=== PATIENT | male | born 1945 | race Caucasian/White ===

== ENCOUNTER 2017-05-08 19:30 | Emergency (ER) | payer MEDICARE, OTHER ==
[2017-05-08] MEDS ORDERED: Sodium Chloride 0.9% 1,000 ML IV ONE (20:24)
[2017-05-08] MEDS ORDERED: Meclizine 25 MG Tab PO ONE (20:25)
--- NOTE | 2017-05-08 20:37 | EDM.PDOC ---
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 Patient states he does not have a history of vertigo. The symptoms of room spinning or reproducible when he moves his head in lays down as stated. He has no chest pain or shortness of breath. He's been eating and drinking what he feels is an appropriate amount of fluid intake. Patient denies palpitations or any new focal weakness. No fevers chills sweats or shaking chills. He is otherwise asymptomatic] Review of systems: As per history of present illness and below otherwise all systems reviewed and negative. Past medical history: As per history of present illness and as reviewed below otherwise noncontributory. Surgical history: As per history of present illness and as reviewed below otherwise noncontributory. Social history: No reported history of drug or alcohol abuse. Family history: As per history of present illness and as reviewed below otherwise noncontributory. Physical exam: Elderly frail-appearing male in no acute distress alert communicative and cooperative and appropriate. Supple neck baseline right eye blindness HEENT: Atraumatic, normocephalic, pupils reactive, negative for conjunctival pallor or scleral icterus, mucous membranes moist, throat clear, neck supple, nontender, trachea midline. Lungs: Clear to auscultation, breath sounds equal bilaterally, chest nontender. Heart: S1S2, regular, negative for clicks, rubs, or JVD. Abdomen: Soft, nondistended, nontender. Negative for masses or hepatosplenomegaly. Negative for costovertebral tenderness. Pelvis: Stable nontender. Genitourinary: Deferred. Rectal: Deferred. Extremities: Atraumatic, negative for cords or calf pain. Neurovascular unremarkable. Neuro: Awake, alert, oriented. 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 Cranial nerves otherwise unremarkable. Cerebellum unremarkable. Patient has a left hand tremor at what appears to be 120 bpm consistent with Parkinson's Motor and sensory otherwise unremarkable throughout. Exam nonfocal. Diagnostics: [EKG with normal sinus rhythm at 69 normal axis no STEMI interpreted by me Chest x-ray chronic changes no acute disease interpreted by me CT of the head pending] Therapeutics: [Meclizine and IV fluids administered] Impression: [Vertigo Dizziness] Plan: [Signs and symptoms consistent with vertigo easily reproducible with movement. Full workup pending to rule out contributory etiology. Meclizine and IV fluids given to follow clinically reevaluate in setting of results and possible anticipate outpatient management and follow-up.] Definitive disposition and diagnosis as appropriate pending reevaluation and review of above. - Related Data Allergies Allergy/AdvReac Type Severity Reaction Status Date / Time morphine Allergy Itching Verified 05/08/17 19:47 pain killers Allergy Itching Uncoded 05/08/17 19:47 Home Meds: Home Meds Aspirin [Halfprin] 81 mg PO DAILY 05/08/17 [History] Divalproex Sodium [Divalproex Sodium ER] 500 mg PO BID 05/08/17 [History] Hydrochlorothiazide 25 mg PO DAILY 05/08/17 [History] Lisinopril [Prinivil] 20 mg PO DAILY 05/08/17 [History] NIFEdipine [Nifediac cc] 60 mg PO DAILY 05/08/17 [History] Pravastatin [Pravachol] 40 mg PO DAILY 05/08/17 [History] Past Medical History HEENT History: Reports: Impaired Vision Cardiovascular History: Reports: High Cholesterol, Hypertension Genitourinary History: Reports: Renal Calculus Neurological History: Reports: CVA, Seizure, TIA - Past Surgical History HEENT Surgical History: Reports: None Cardiovascular Surgical History: Reports: None GI Surgical History: Reports: Appendectomy Male Surgical History: Reports: None Neurological Surgical History: Reports: None Social & Family History - Family History Family Medical History: Noncontributory - Tobacco Use Smoking Status *Q: Never Smoker Second Hand Smoke Exposure: No - Caffeine Use Caffeine Use: Reports: Coffee Caffeine Use Comment: 2cups/day - Recreational Drug Use Recreational Drug Use: No ED ROS GENERAL - Review of Systems Review Of Systems: See Below (History of present illness) ED EXAM, NEURO - Physical Exam Exam: See Below (History of present illness) Course - Vital Signs Last Recorded V/S: Last Vital Signs Temp 36.8 C 05/08/17 19:41 Pulse 72 05/08/17 19:41 Resp 20 05/08/17 19:41 BP 148/67 H 05/08/17 19:41 Pulse Ox - Orders/Labs/Meds Orders: Active Orders 24 hr Category Date Time Status EKG Documentation Completion [RC] STAT Care 05/08/17 20:24 Active Peripheral IV Care [RC] . DIRECTED Care 05/08/17 20:24 Active Chest 1V Frontal [CR] Stat Exams 05/08/17 20:24 Taken Head wo Cont [CT] Stat Exams 05/08/17 20:24 Taken Peripheral IV Insertion Adult [OM.PC] Stat Oth 05/08/17 20:24 Ordered Labs: Laboratory Tests 05/08/17 05/08/17 05/08/17 Range/Units 20:44 20:44 20:44 WBC 6.83 (4.0-11.0) K/uL RBC 3.84 L (4.50-5.90) M/uL Hgb 12.7 L (13.0-17.0) g/dL Hct 38.2 (38.0-50.0) % MCV 99.5 H (80.0-98.0) fL MCH 33.1 H (27.0-32.0) pg MCHC 33.2 (31.0-37.0) g/dL RDW Std Deviation 48.6 (28.0-62.0) fl RDW Coeff of Sayra 14 (11.0-15.0) % Plt Count 183 (150-400) K/uL MPV 11.30 (7.40-12.00) fL Neut % (Auto) 51.2 (48.0-80.0) % Lymph % (Auto) 33.5 (16.0-40.0) % [place] % (Auto) 14.3 (0.0-15.0) % Eos % (Auto) 0.7 (0.0-7.0) % Baso % (Auto) 0.3 (0.0-1.5) % Neut # (Auto) 3.5 (1.4-5.7) K/uL Lymph # (Auto) 2.3 (0.6-2.4) K/uL [place] # (Auto) 1.0 H (0.0-0.8) K/uL Eos # (Auto) 0.1 (0.0-0.7) K/uL Baso # (Auto) 0.0 (0.0-0.1) K/uL Nucleated RBC % 0.0 /100WBC Nucleated RBCs # 0 K/uL Sodium 143 (136-146) mmol/L Potassium 4.2 (3.5-5.1) mmol/L Chloride 105 (98-110) mmol/L Carbon Dioxide 30 (21-31) mmol/L BUN 21 (6.0-23.0) mg/dL Creatinine 1.1 (0.6-1.5) mg/dL Est Cr Clr Drug Dosing 49.40 mL/min Estimated GFR (MDRD) > 60.0 ml/min Glucose 112 H (60-110) mg/dL Calcium 10.0 (8.8-10.8) mg/dL Troponin I < 0.10 (0.0-0.29) NG/ML TSH 3rd Generation 2.29 (0.47-5.0) uIU/mL Meds: Medications Discontinued Medications Generic Name Dose Route Start Last Admin Trade Name Freq PRN Reason Stop Dose Admin Sodium Chloride 1,000 mls @ 999 mls/hr 05/08/17 20:24 05/08/17 20:38 Normal Saline IV 05/08/17 21:24 999 mls/hr .Bolus ONE Administration Meclizine HCl 25 mg 05/08/17 20:25 05/08/17 20:38 Antivert PO 05/08/17 20:26 25 mg ONETIME ONE Administration Departure - Departure Time of Disposition: 23:43 Disposition: Home, Self-Care 01 Condition: Good Clinical Impression: Vertigo - Discharge Information Referrals: PCP,None [Primary Care Provider] - Forms: ED Department Discharge Additional Instructions: Your symptoms are consistent with vertigo. A very full workup today including a CAT scan of your head EKG chest x-ray and labs all showed nothing which would contribute to your dizziness. Take meclizine, one pill every 6 hours as needed for dizziness. Be very careful walking and with your activities of daily living to avoid falls. Use walker if necessary. Follow-up with your DrBev in one to 2 days and return immediately for new severe or worsening symptoms - My Orders Last 24 Hours: My Active Orders 05/08/17 20:24 EKG Documentation Completion [RC] STAT Peripheral IV Care [RC] . DIRECTED Chest 1V Frontal [CR] Stat Head wo Cont [CT] Stat Peripheral IV Insertion Adult [OM.PC] Stat - Assessment/Plan Last 24 Hours: My Active Orders 05/08/17 20:24 EKG Documentation Completion [RC] STAT Peripheral IV Care [RC] . DIRECTED Chest 1V Frontal [CR] Stat Head wo Cont [CT] Stat Peripheral IV Insertion Adult [OM.PC] Stat
[2017-05-08 21:11] LABS: CHLORIDE,CL 105 mmol/L (98-110); SODIUM,NA 143 mmol/L (136-146)
[2017-05-08 23:46] VITALS: BP 136/52
--- NOTE | 2017-05-09 15:36 | CT ---
EXAM DATE: 05/08/17 PATIENT'S AGE: 71 Patient: ARMANDO ALMANZAR Facility: [place], [place] Site . Site : 1945 Study: CT Head [id number]/2/[id number] 9:34:34 PM Ordering Physician: Yogi Wu Final Report: HISTORY: Previous history of strokes. Question new onset. TECHNIQUE: The head was scanned in the axial plane at 3 mm intervals without IV contrast. Reconstructed bone windows obtained as well/reconstructions. FINDINGS: The visualized paranasal sinuses and mastoid air cells are well aerated. The calvarium is intact. There is calcification seen within the right vertebral artery and the carotid siphons. A 9.3 x 3.2 cm CSF fluid collection is seen posterior fossa. This may represent a latha cisterna magna or arachnoid cyst. The ventricles and sulci are enlarged. Patchy periventricular and subcortical white matter hypodensity is present. A 4 mm hypodensity seen in the right cerebellar hemisphere compatible old ischemia. A 5 mm lacunar infarct is in the left basal ganglia. There is encephalomalacia seen within the left occipital lobe and a smaller focus in the right occipital lobe compatible with old ischemia. No intra-axial mass, edema or midline shift identified. No extra- axial bleed identified. The lanier-white differentiation preserved. IMPRESSION: 1. Encephalomalacia compatible old ischemia within the occipital lobes, left greater than right. 2. 4 mm area of old ischemia within the right cerebellar hemisphere. 5 mm lacunar infarct in the left basal ganglia. 3. Atrophy. 4. Periventricular and subcortical white matter hypodensity most consistent with small vessel ischemic change. 5. No acute intracranial pathology or bleed. Dictated by Veena Edwards MD @ 05/08/2017 10:19:07 PM Dictated by: Veena Edwards MD @ 05/08/2017 22:19:21 (Electronic Signature) Report Signed by Proxy. JEREMY
--- NOTE | 2017-05-09 15:37 | CR ---
EXAM DATE: 05/08/17 PATIENT'S AGE: 71 Patient: ARMANDO ALMANZAR Facility: [place], [place] Site . Site : 1945 Study: XRay Chest [id number]/2/2017 9:35:13 PM Ordering Physician: Yogi Wu Final Report: HISTORY: Cardio evaluation. FINDINGS: AP portable chest radiograph demonstrates cardiac silhouette at the upper limits of normal. Pulmonary vasculature is free of cephalization. No consolidation or pleural effusion is seen. An 8 mm pulmonary nodule in left upper lobe with a central nidus of calcification compatible with a granuloma. IMPRESSION: No acute cardiopulmonary disease. Dictated by Veena Edwards MD @ 05/08/2017 10:20:57 PM Dictated by: Veena Edwards MD @ 05/08/2017 22:21:05 (Electronic Signature) Report Signed by Proxy. JEREMY
== END 2017-05-08 23:55 | disposition home or self-care (01) ==
LOC: MW.ED 19:30
DX: R42 Dizziness and giddiness (principal); I10 Essential (primary) hypertension; E78.00 Pure hypercholesterolemia, unspecified; Z88.5 Allergy status to narcotic agent; Z79.82 Long term (current) use of aspirin; Z79.899 Other long term (current) drug therapy; Z87.442 Personal history of urinary calculi; Z86.73 Personal history of transient ischemic attack (TIA), and cerebral infarction without residual deficits; Z90.49 Acquired absence of other specified parts of digestive tract
CPT/HCPCS: 36415; 70450; 71010; 80048; 84443; 84484; 85025; 96360; 99285; A9270; J7040; 93005; 99283

== ENCOUNTER 2019-05-16 15:07 | Observation (INO) | payer MEDICARE, OTHER ==
[2019-05-16] MEDS ORDERED: Sodium Chloride 0.9% 10 ML Syringe FLUSH PRN (15:09)
[2019-05-16] MEDS ORDERED: Sodium Chloride 0.9% 10 ML SDV IV PRN (15:09)
[2019-05-16] MEDS ORDERED: Sodium Chloride 0.9% 2.5 ML Syringe FLUSH PRN (15:09)
--- NOTE | 2019-05-16 15:09 | EDM.PDOC ---
ED HPI GENERAL MEDICAL PROBLEM - General Stated Complaint: STROKE CODE Time Seen by Provider: 05/16/19 15:08 Source of Information: Reports: Patient History Limitations: Reports: No Limitations - History of Present Illness INITIAL COMMENTS - FREE TEXT/NARRATIVE: History of present illness: []Patient was brought in by his [id number] with seeing lines in his vision 10 minutes prior to arrival. He has also had a 2 day history of not taking his seizure and blood pressure meds, hallucinating and seeing people in their house and being more confused than normal. He has had 10 strokes in the past, the last one being 4 years ago, all of them have had visual symptoms with seeing "floaters and dots" and has not had any motor or sensory deficits with any of them. He was seen by the [facility] in [place] for his last stroke. He moved to [place] 2 years ago and has been seen in the [facility] for med refills only. He does not have a primary care or neurologist locally. Review of systems: As per history of present illness and below otherwise all systems reviewed and negative. Past medical history: As per history of present illness and as reviewed below otherwise noncontributory. Surgical history: As per history of present illness and as reviewed below otherwise noncontributory. Social history: No reported history of drug or alcohol abuse. Family history: As per history of present illness and as reviewed below otherwise noncontributory. Physical exam: General: Well developed, well nourished in NAD HEENT: Atraumatic, normocephalic, pupils reactive, negative for conjunctival pallor or scleral icterus, mucous membranes moist, throat clear, neck supple, nontender, trachea midline. Lungs: Clear to auscultation, breath sounds equal bilaterally, chest nontender. Heart: S1S2, regular, negative for clicks, rubs, or JVD. Abdomen: NABS, Soft, nondistended, nontender. Negative for masses or hepatosplenomegaly. Negative for costovertebral tenderness. Pelvis: Stable nontender. Genitourinary: Deferred. Rectal: Deferred. Extremities: Atraumatic, negative for cords or calf pain. Neurovascular unremarkable. Neuro: Awake, alert, oriented. Cranial nerves II through XII unremarkable. Cerebellum unremarkable. Motor and sensory unremarkable throughout. Exam nonfocal. Skin:warm and dry Diagnostics: CT head, CBC, chemistry, troponin, chest x-ray, TSH, UA and EKG Therapeutics: None ED Course: Consulted Dr. Chapman who knows this patient and has seen him in the office. She recommended admitting him for altered mental status and further workup, including MRI of brain Impression: Altered mental status Prescriptions: None Plan: Admit to hospitalist Dr. Mack accepts Definitive disposition and diagnosis as appropriate pending reevaluation and review of above. - Related Data Allergies Allergy/AdvReac Type Severity Reaction Status Date / Time morphine Allergy Itching Verified 05/16/19 15:26 pain killers Allergy Itching Uncoded 05/08/17 19:47 Home Meds: Home Meds Aspirin [Halfprin] 81 mg PO DAILY 05/08/17 [History] Cyanocobalamin (Vitamin B12) [Vitamin B12] 05/16/19 [History] Lacosamide [Vimpat] 25 mg PO ASDIRECTED 05/16/19 [History] Magnesium 05/16/19 [History] Multivitamin [Multivitamins] 05/16/19 [History] Past Medical History HEENT History: Reports: Impaired Vision Cardiovascular History: Reports: High Cholesterol, Hypertension Genitourinary History: Reports: Renal Calculus Neurological History: Reports: CVA, Seizure, TIA - Past Surgical History HEENT Surgical History: Reports: None Cardiovascular Surgical History: Reports: None GI Surgical History: Reports: Appendectomy Male Surgical History: Reports: None Neurological Surgical History: Reports: None Social & Family History - Family History Family Medical History: Noncontributory - Caffeine Use Caffeine Use: Reports: Coffee Caffeine Use Comment: 2cups/day ED ROS GENERAL - Review of Systems Review Of Systems: See Below ED EXAM, NEURO - Physical Exam Exam: See Below Course - Vital Signs Last Recorded V/S: Last Vital Signs Temp 95.5 F 05/16/19 17:30 Pulse 87 05/16/19 17:30 Resp 18 05/16/19 17:30 BP 154/80 H 05/16/19 17:30 Pulse Ox 97 05/16/19 17:30 - Orders/Labs/Meds Orders: Active Orders 24 hr Category Date Time Status Assess Neurological Status [RC] ASDIRECTED Care 05/16/19 15:09 Active Bedrest [RC] ASDIRECTED Care 05/16/19 15:09 Active Cardiac Monitoring [RC] . DIRECTED Care 05/16/19 15:09 Active EKG Documentation Completion [RC] STAT Care 05/16/19 15:09 Active Height and Weight [RC] UPON Care 05/16/19 15:09 Active Initiate Acute Stroke Protocol [RC] STAT Care 05/16/19 15:09 Active NIH Stroke Scale [RC] ASDIRECTED Care 05/16/19 15:09 Active Nursing Bedside Swallow Screen [RC] ASDIRECTED Care 05/16/19 15:09 Active Oxygen Therapy [RC] ASDIRECTED Care 05/16/19 15:09 Active Stroke Education, General [] Click to Edit Care 05/16/19 15:09 Active Sodium Chloride 0.9% [Normal Saline] Med 05/16/19 15:09 Active 10 ml IV ASDIRECTED PRN Sodium Chloride 0.9% [Normal Saline] 500 ml Med 05/16/19 15:45 Active IV .BOLUS Sodium Chloride 0.9% [Saline Flush] Med 05/16/19 15:09 Active 10 ml FLUSH ASDIRECTED PRN Sodium Chloride 0.9% [Saline Flush] Med 05/16/19 15:09 Active 2.5 ml FLUSH ASDIRECTED PRN Peripheral IV Insertion Adult [OM.PC] Stat Oth 05/16/19 15:09 Ordered Peripheral IV Insertion Adult [OM.PC] Stat Oth 05/16/19 15:09 Ordered Medication Orders Sodium Chloride (Normal Saline) 500 mls @ 999 mls/hr IV .BOLUS RAJAN Last Infusion: 05/16/19 15:47 Dose: 250 mls/hr Admin: 05/16/19 15:42 Dose: 999 mls/hr Sodium Chloride (Saline Flush) 10 ml FLUSH ASDIRECTED PRN PRN Reason: Keep Vein Open Sodium Chloride (Saline Flush) 2.5 ml FLUSH ASDIRECTED PRN PRN Reason: Keep Vein Open Sodium Chloride (Normal Saline) 10 ml IV ASDIRECTED PRN PRN Reason: IV Use Labs: Laboratory Tests 05/16/19 05/16/19 05/16/19 Range/Units 15:25 15:25 15:25 WBC 7.21 (4.0-11.0) K/uL RBC 4.36 L (4.50-5.90) M/uL Hgb 13.6 (13.0-17.0) g/dL Hct 40.9 (38.0-50.0) % MCV 93.8 (80.0-98.0) fL MCH 31.2 (27.0-32.0) pg MCHC 33.3 (31.0-37.0) g/dL RDW Std Deviation 47.4 (28.0-62.0) fl RDW Coeff of Sayra 14 (11.0-15.0) % Plt Count 151 (150-400) K/uL MPV 11.50 (7.40-12.00) fL Neut % (Auto) 37.4 L (48.0-80.0) % Lymph % (Auto) 46.0 H (16.0-40.0) % [place] % (Auto) 12.8 (0.0-15.0) % Eos % (Auto) 3.7 (0.0-7.0) % Baso % (Auto) 0.1 (0.0-1.5) % Neut # (Auto) 2.7 (1.4-5.7) K/uL Lymph # (Auto) 3.3 H (0.6-2.4) K/uL [place] # (Auto) 0.9 H (0.0-0.8) K/uL Eos # (Auto) 0.3 (0.0-0.7) K/uL Baso # (Auto) 0.0 (0.0-0.1) K/uL Nucleated RBC % 0.0 /100WBC Nucleated RBCs # 0 K/uL INR 0.96 APTT 28.1 (18.6-31.3) SEC Sodium 140 (136-148) mmol/L Potassium 3.6 (3.5-5.1) mmol/L Chloride 105 (98-107) mmol/L Carbon Dioxide 28.6 (21.0-32.0) mmol/L BUN 18 (7.0-18.0) mg/dL Creatinine 1.1 (0.8-1.3) mg/dL Est Cr Clr Drug Dosing 44.81 mL/min Estimated GFR (MDRD) > 60.0 ml/min Glucose 96 (74-106) mg/dL Calcium 9.3 (8.5-10.1) mg/dL Total Bilirubin 0.3 (0.2-1.0) mg/dL AST 22 (15-37) IU/L ALT 22 (14-63) IU/L Alkaline Phosphatase 119 H (46-116) U/L Troponin I < 0.050 (0.000-0.056) ng/mL Total Protein 8.4 H (6.4-8.2) g/dL Albumin 3.2 L (3.4-5.0) g/dL Globulin 5.2 H (2.6-4.0) g/dL Albumin/Globulin Ratio 0.6 L (0.9-1.6) TSH 3rd Generation 2.85 (0.36-3.74) uIU/mL Meds: Medications Generic Name Dose Route Start Last Admin Trade Name Freq PRN Reason Stop Dose Admin Sodium Chloride 500 mls @ 999 mls/hr 05/16/19 15:45 05/16/19 15:47 Normal Saline IV 250 mls/hr .BOLUS RAJAN Infusion Sodium Chloride 10 ml 05/16/19 15:09 Saline Flush FLUSH ASDIRECTED PRN Keep Vein Open Sodium Chloride 2.5 ml 05/16/19 15:09 Saline Flush FLUSH ASDIRECTED PRN Keep Vein Open Sodium Chloride 10 ml 05/16/19 15:09 Normal Saline IV ASDIRECTED PRN IV Use Departure - Departure Time of Disposition: 17:25 Disposition: Home, Self-Care 01 Condition: Good Clinical Impression: Altered mental status Qualifiers: Altered mental status type: unspecified Qualified Code(s): R41.82 - Altered mental status, unspecified - Discharge Information *PRESCRIPTION DRUG MONITORING PROGRAM REVIEWED*: No *COPY OF PRESCRIPTION DRUG MONITORING REPORT IN PATIENT CINDY: No - My Orders Last 24 Hours: My Active Orders 05/16/19 15:09 Assess Neurological Status [RC] ASDIRECTED Bedrest [RC] ASDIRECTED Cardiac Monitoring [RC] . DIRECTED EKG Documentation Completion [RC] STAT Height and Weight [RC] UPON Initiate Acute Stroke Protocol [RC] STAT NIH Stroke Scale [RC] ASDIRECTED Nursing Bedside Swallow Screen [RC] ASDIRECTED Oxygen Therapy [RC] ASDIRECTED Stroke Education, General [RC] Click to Edit Sodium Chloride 0.9% [Normal Saline] 10 ml IV ASDIRECTED PRN Sodium Chloride 0.9% [Saline Flush] 10 ml FLUSH ASDIRECTED PRN Sodium Chloride 0.9% [Saline Flush] 2.5 ml FLUSH ASDIRECTED PRN Peripheral IV Insertion Adult [OM.PC] Stat Peripheral IV Insertion Adult [OM.PC] Stat 05/16/19 15:45 Sodium Chloride 0.9% [Normal Saline] 500 ml IV .BOLUS - Assessment/Plan Last 24 Hours: My Active Orders 05/16/19 15:09 Assess Neurological Status [RC] ASDIRECTED Bedrest [RC] ASDIRECTED Cardiac Monitoring [RC] . DIRECTED EKG Documentation Completion [RC] STAT Height and Weight [RC] UPON Initiate Acute Stroke Protocol [RC] STAT NIH Stroke Scale [RC] ASDIRECTED Nursing Bedside Swallow Screen [RC] ASDIRECTED Oxygen Therapy [RC] ASDIRECTED Stroke Education, General [RC] Click to Edit Sodium Chloride 0.9% [Normal Saline] 10 ml IV ASDIRECTED PRN Sodium Chloride 0.9% [Saline Flush] 10 ml FLUSH ASDIRECTED PRN Sodium Chloride 0.9% [Saline Flush] 2.5 ml FLUSH ASDIRECTED PRN Peripheral IV Insertion Adult [OM.PC] Stat Peripheral IV Insertion Adult [OM.PC] Stat 05/16/19 15:45 Sodium Chloride 0.9% [Normal Saline] 500 ml IV .BOLUS
--- NOTE | 2019-05-16 15:36 | CT ---
Head CT Technique: Multiple axial sections through the brain were obtained. Intravenous contrast was not utilized. Comparison: Prior head CT exam of 03/22/18. Findings: Ventricles along with basal cisterns and sulci the convexities are moderately prominent. Old left occipital lobe infarct is seen. Old cerebellar infarcts are noted with atrophy. Ex vacuole enlargement is noted within the occipital horn of the left lateral ventricle. Mild areas of diminished density are noted within the periventricular white matter which is compatible with small vessel ischemic demyelination change. Old lacunar infarct is noted within the left basal ganglia. No other abnormal parenchymal densities are seen. No evidence of intracranial hemorrhage. No midline shift or mass effect is seen. Atherosclerotic calcification is seen within the vertebral vessel and within the carotid siphon. Bone window settings were reviewed which shows no acute calvarial abnormality. Visualized mastoid sinuses are clear. Paranasal sinuses that are seen also show nothing acute. Impression: 1. Senescent change as noted above which is stable from prior head CT study. 2. Nothing acute is appreciated on current noncontrast head CT exam. Diagnostic code #2 MTDD
[2019-05-16] MEDS ORDERED: Sodium Chloride 0.9% 500 ML IV SCH (15:45)
[2019-05-16 16:14] LABS: BLOOD UREA NITROGEN,BUN 18 mg/dL (7.0-18.0); CARBON DIOXIDE,CO2 28.6 mmol/L (21.0-32.0); CHLORIDE,CL 105 mmol/L (98-107); GLUCOSE RANDOM 96 mg/dL (74-106); POTASSIUM,K 3.6 mmol/L (3.5-5.1); SODIUM,NA 140 mmol/L (136-148)
[2019-05-16] MEDS ORDERED: Potassium Chloride 20 MEQ Tab.ER PO ONE (19:00)
[2019-05-16] MEDS ORDERED: Magnesium Oxide 400 MG Tab PO ONE (19:01)
--- NOTE | 2019-05-16 19:51 | PCM.HP.2 ---
H&P History of Present Illness - General Date of Service: 05/16/19 Admit Problem/Dx: Admission Diagnosis/Problem Admission Diagnosis/Problem Altered mental status Source of Information: Patient, Family History Limitations: Reports: Altered Mental Status (limited insight, active psychosis) - History of Present Illness Initial Comments - Free Text/Narative: Patient is a 73 y/o M PMH of vascular dementia, CVA, HTN, Seizure disorder who was brought in by his family after he complained of "seeing lines in his vision " which happed almost 10 minutes prior to arrival. According to patient has not been taking his home Meds and has missed several doses. Patient has active psychosis where he believes he is a holy man who will live upto 80years of age and cannot before that. Patient also has very vivid visual hallucinations describing spirits and people wearing bright red clothes, surrounding him in the room. states that he has been having hallucination for last 3 months now where he says people running across the room. Patients symptoms however have been getting worse last few days. Patient denied C/P, N/V/ D, fever, abdominal pain, urinary symptoms, head trauma. Wide describes mild cough whenever patient attempts to swallow. The tremor has been getting worse as well. Stroke alert was called in ER, CT scan was was performed which was neagtive fro acute stroke. Neurology suggested obtaining MRI and admitting for AMS work up. Last Recorded V/S: Last Vital Signs Temp 95.5 F 05/16/19 17:30 Pulse 87 05/16/19 17:30 Resp 18 05/16/19 17:30 BP 154/80 H 05/16/19 17:30 Pulse Ox 97 05/16/19 17:30 Medications in ER Generic Name Dose Route Start Last Admin Trade Name Freq PRN Reason Stop Dose Admin Sodium Chloride 500 mls @ 999 mls/hr 05/16/19 15:45 05/16/19 15:47 Normal Saline IV 250 mls/hr .BOLUS RAJAN Infusion Sodium Chloride 10 ml 05/16/19 15:09 Saline Flush FLUSH ASDIRECTED PRN Keep Vein Open Sodium Chloride 2.5 ml 05/16/19 15:09 Saline Flush FLUSH ASDIRECTED PRN Keep Vein Open Sodium Chloride 10 ml 05/16/19 15:09 Normal Saline IV ASDIRECTED PRN IV Use Onset of Symptoms: Reports: Gradual Duration of Symptoms: Reports: Chronic, Getting Worse Improves with: Reports: None Worsens with: Reports: None - Related Data Allergies/Adverse Reactions: Allergies Allergy/AdvReac Type Severity Reaction Status Date / Time morphine Allergy Itching Verified 05/17/19 00:02 pain killers Allergy Itching Uncoded 05/17/19 00:02 Home Medications: Home Meds Aspirin [Halfprin] 81 mg PO DAILY 05/08/17 [History] Timolol Maleate [Timoptic 0.5% Ophth Soln] 1 drop EYELF BID 05/16/19 [History] Lacosamide [Vimpat] 50 mg PO BID #60 tab 05/17/19 [Rx] Pravastatin [Pravachol] 40 mg PO BEDTIME #30 tablet 05/17/19 [Rx] Thiamine [Vitamin B-1] 100 mg PO BEDTIME 30 Days #30 tablet 05/17/19 [Rx] amLODIPine [Norvasc] 5 mg PO DAILY #30 tab 05/17/19 [Rx] Past Medical History HEENT History: Reports: Impaired Vision Cardiovascular History: Reports: High Cholesterol, Hypertension Respiratory History: Reports: Other (See Below) Other Respiratory History: "I have bad lungs". Genitourinary History: Reports: Renal Calculus Other Genitourinary History: "I have bad kidneys". Musculoskeletal History: Reports: Other (See Below) Other Musculoskeletal History: Generalized weakness. Neurological History: Reports: CVA, Seizure, TIA Psychiatric History: Reports: Dementia Immunologic History: Reports: None Dermatologic History: Reports: Scleroderma - Infectious Disease History Infectious Disease History: Reports: Other (See Below) Other Infectious Disease History: Unable to verify - Past Surgical History HEENT Surgical History: Reports: None Cardiovascular Surgical History: Reports: None GI Surgical History: Reports: Appendectomy Male Surgical History: Reports: None Neurological Surgical History: Reports: None Social & Family History - Family History Family Medical History: Noncontributory - Tobacco Use Smoking Status *Q: Never Smoker Second Hand Smoke Exposure: No - Caffeine Use Caffeine Use: Reports: Coffee Caffeine Use Comment: 2cups/day - Recreational Drug Use Recreational Drug Use: No H&P Review of Systems - Review of Systems: Review Of Systems: See Below General: Reports: No Symptoms HEENT: Reports: No Symptoms, Rhinitis (upon swallowing ) Pulmonary: Reports: Cough Cardiovascular: Denies: Chest Pain, Palpitations Gastrointestinal: Reports: Decreased Appetite. Denies: Abdominal Pain, Black Stool, Constipation, Diarrhea Genitourinary: Denies: Dysuria, Frequency, Burning Musculoskeletal: Denies: Neck Pain, Shoulder Pain, Arm Pain Psychiatric: Reports: Hallucinations, Hallucinations (Visual). Denies: Suicidal Ideation, Homicidal Ideation Neurological: Reports: Seizure, Tremors, Difficulty Walking, Gait Disturbance Hematologic/Lymphatic: Reports: No Symptoms Immunologic: Reports: No Symptoms Exam - Exam Exam: See Below - Vital Signs Vital Signs: Last Vital Signs Temp 35.3 C 05/16/19 17:30 Pulse 87 05/16/19 17:30 Resp 18 05/16/19 17:30 BP 154/80 H 05/16/19 17:30 Pulse Ox 97 05/16/19 17:30 Weight: 120 lb 11.2 oz - Exam Quality Assessment: Supplemental Oxygen General: Alert, Cooperative HEENT: Conjunctiva Clear, Normal Nasal Septum, Pupils Equal, Rhinitis. No: Mucosa Moist & [place] Neck: Supple, Trachea Midline Lungs: Clear to Auscultation, Normal Respiratory Effort Cardiovascular: Regular Rate, Irregular Rhythm GI/Abdominal Exam: Normal Bowel Sounds, Soft, Non-Tender Back Exam: Normal Inspection Extremities: Normal Inspection, Normal Range of Motion Peripheral Pulses: 3+: Dorsalis Pedis (L), Dorsalis Pedis (R) Skin: Warm, Dry Neurological: Normal Speech, Abnormal Gait (chronic) Neuro Extensive - Mental Status: Alert, Oriented x3, Memory Intact Neuro Extensive - Motor, Sensory, Reflexes: Normal Reflexes Psychiatric: Hallucinations. No: Suicidal Ideation, Homicidal Ideation - Patient Data Lab Results Last 24 hrs: Laboratory Results - last 24 hr 05/16/19 05/16/19 05/16/19 Range/Units 15:25 15:25 15:25 WBC 7.21 (4.0-11.0) K/uL RBC 4.36 L (4.50-5.90) M/uL Hgb 13.6 (13.0-17.0) g/dL Hct 40.9 (38.0-50.0) % MCV 93.8 (80.0-98.0) fL MCH 31.2 (27.0-32.0) pg MCHC 33.3 (31.0-37.0) g/dL RDW Std Deviation 47.4 (28.0-62.0) fl RDW Coeff of Sayra 14 (11.0-15.0) % Plt Count 151 (150-400) K/uL MPV 11.50 (7.40-12.00) fL Neut % (Auto) 37.4 L (48.0-80.0) % Lymph % (Auto) 46.0 H (16.0-40.0) % [place] % (Auto) 12.8 (0.0-15.0) % Eos % (Auto) 3.7 (0.0-7.0) % Baso % (Auto) 0.1 (0.0-1.5) % Neut # (Auto) 2.7 (1.4-5.7) K/uL Lymph # (Auto) 3.3 H (0.6-2.4) K/uL [place] # (Auto) 0.9 H (0.0-0.8) K/uL Eos # (Auto) 0.3 (0.0-0.7) K/uL Baso # (Auto) 0.0 (0.0-0.1) K/uL Nucleated RBC % 0.0 /100WBC Nucleated RBCs # 0 K/uL INR 0.96 APTT 28.1 (18.6-31.3) SEC Sodium 140 (136-148) mmol/L Potassium 3.6 (3.5-5.1) mmol/L Chloride 105 (98-107) mmol/L Carbon Dioxide 28.6 (21.0-32.0) mmol/L BUN 18 (7.0-18.0) mg/dL Creatinine 1.1 (0.8-1.3) mg/dL Est Cr Clr Drug Dosing 44.81 mL/min Estimated GFR (MDRD) > 60.0 ml/min Glucose 96 (74-106) mg/dL Calcium 9.3 (8.5-10.1) mg/dL Total Bilirubin 0.3 (0.2-1.0) mg/dL AST 22 (15-37) IU/L ALT 22 (14-63) IU/L Alkaline Phosphatase 119 H (46-116) U/L Troponin I < 0.050 (0.000-0.056) ng/mL Total Protein 8.4 H (6.4-8.2) g/dL Albumin 3.2 L (3.4-5.0) g/dL Globulin 5.2 H (2.6-4.0) g/dL Albumin/Globulin Ratio 0.6 L (0.9-1.6) TSH 3rd Generation 2.85 (0.36-3.74) uIU/mL Urine Color Urine Appearance Urine pH (5.0-8.0) Ur Specific [place] (1.001-1.035) Urine Protein (NEGATIVE) mg/dL Urine Glucose (UA) (NEGATIVE) mg/dL Urine Ketones (NEGATIVE) mg/dL Urine Occult Blood (NEGATIVE) Urine Nitrite (NEGATIVE) Urine Bilirubin (NEGATIVE) Urine Urobilinogen (<2.0) EU/dL Ur Leukocyte Esterase (NEGATIVE) Urine RBC (0-2/HPF) Urine WBC (0-5/HPF) Ur Epithelial Cells (NONE-FEW) Urine Bacteria (NEGATIVE) Urine Mucus (NONE-MOD) 05/16/19 Range/Units 16:05 WBC (4.0-11.0) K/uL RBC (4.50-5.90) M/uL Hgb (13.0-17.0) g/dL Hct (38.0-50.0) % MCV (80.0-98.0) fL MCH (27.0-32.0) pg MCHC (31.0-37.0) g/dL RDW Std Deviation (28.0-62.0) fl RDW Coeff of [place]ra (11.0-15.0) % Plt Count (150-400) K/uL MPV (7.40-12.00) fL Neut % (Auto) (48.0-80.0) % Lymph % (Auto) (16.0-40.0) % [place] % (Auto) (0.0-15.0) % Eos % (Auto) (0.0-7.0) % Baso % (Auto) (0.0-1.5) % Neut # (Auto) (1.4-5.7) K/uL Lymph # (Auto) (0.6-2.4) K/uL [place] # (Auto) (0.0-0.8) K/uL Eos # (Auto) (0.0-0.7) K/uL Baso # (Auto) (0.0-0.1) K/uL Nucleated RBC % /100WBC Nucleated RBCs # K/uL INR APTT (18.6-31.3) SEC Sodium (136-148) mmol/L Potassium (3.5-5.1) mmol/L Chloride (98-107) mmol/L Carbon Dioxide (21.0-32.0) mmol/L BUN (7.0-18.0) mg/dL Creatinine (0.8-1.3) mg/dL Est Cr Clr Drug Dosing mL/min Estimated GFR (MDRD) ml/min Glucose (74-106) mg/dL Calcium (8.5-10.1) mg/dL Total Bilirubin (0.2-1.0) mg/dL AST (15-37) IU/L ALT (14-63) IU/L Alkaline Phosphatase (46-116) U/L Troponin I (0.000-0.056) ng/mL Total Protein (6.4-8.2) g/dL Albumin (3.4-5.0) g/dL Globulin (2.6-4.0) g/dL Albumin/Globulin Ratio (0.9-1.6) TSH 3rd Generation (0.36-3.74) uIU/mL Urine Color YELLOW Urine Appearance CLEAR Urine pH 6.5 (5.0-8.0) Ur Specific [place] 1.020 (1.001-1.035) Urine Protein 30 H (NEGATIVE) mg/dL Urine Glucose (UA) NEGATIVE (NEGATIVE) mg/dL Urine Ketones NEGATIVE (NEGATIVE) mg/dL Urine Occult Blood NEGATIVE (NEGATIVE) Urine Nitrite NEGATIVE (NEGATIVE) Urine Bilirubin NEGATIVE (NEGATIVE) Urine Urobilinogen 0.2 (<2.0) EU/dL Ur Leukocyte Esterase NEGATIVE (NEGATIVE) Urine RBC 0-1 (0-2/HPF) Urine WBC 0-2 (0-5/HPF) Ur Epithelial Cells FEW (NONE-FEW) Urine Bacteria RARE (NEGATIVE) Urine Mucus LIGHT (NONE-MOD) Result Diagrams: 05/17/19 05:45 05/17/19 05:45 *Q Meaningful Use (ADM) - VTE Risk Assess *Q Each Risk Factor Represents 3 Points: Age 75 Years or Greater Total Score 3 Point Risk Factors: 3 - Problem List (1) Altered mental status SNOMED Code(s): 958634264 ICD Code: R41.82 - ALTERED MENTAL STATUS, UNSPECIFIED Status: Acute Qualifiers: Altered mental status type: unspecified Qualified Code(s): R41.82 - Altered mental status, unspecified (2) HTN (hypertension) SNOMED Code(s): 79250591 ICD Code: I10 - ESSENTIAL (PRIMARY) HYPERTENSION Status: Acute (3) CVA, old, cognitive deficits SNOMED Code(s): 466655622, 256064081, 203903439, 090445689 ICD Code: I69.319 - UNSP SYMPTOMS AND SIGNS W COGN FNCTNS FOL CEREBRAL INFRC Status: Acute (4) Seizure SNOMED Code(s): 81144423 ICD Code: R56.9 - UNSPECIFIED CONVULSIONS Status: Acute Problem List Initiated/Reviewed/Updated: Yes Orders Last 24hrs: Active Orders 24 hr Category Date Time Status Patient Status [ADT] Stat ADT 05/16/19 16:01 Active Assess Neurological Status [RC] Q2HWA Care 05/16/19 18:43 Active Bedrest [RC] ASDIRECTED Care 05/16/19 15:09 Active Cardiac Monitoring [RC] . DIRECTED Care 05/16/19 15:09 Active Initiate Acute Stroke Protocol [RC] STAT Care 05/16/19 15:09 Active NIH Stroke Scale [RC] ASDIRECTED Care 05/16/19 15:09 Active Nursing Bedside Swallow Screen [RC] ASDIRECTED Care 05/16/19 15:09 Active Oxygen Therapy [RC] ASDIRECTED Care 05/16/19 15:09 Active Stroke Education, General [RC] Click to Edit Care 05/16/19 15:09 Active Up With Assistance [RC] ASDIRECTED Care 05/16/19 16:30 Active Vital Signs [RC] Q4H Care 05/16/19 16:33 Active Heart Healthy Diet [DIET] Diet 05/16/19 Dinner Active Brain w wo Cont [MR] Routine Exams 05/16/19 18:09 Ordered DRUG SCREEN, URINE [URCHEM] Urgent Lab 05/16/19 18:45 Ordered GLYCOSYLATED HEMOGLOBIN,HGBA1C [CHEM] AM Lab 05/17/19 05:11 Ordered LIPID PANEL [CHEM] AM Lab 05/17/19 05:11 Ordered VITAMIN B12 [CHEM] Routine Lab 05/16/19 18:53 Ordered Aspirin Med 05/16/19 21:00 Active 81 mg PO BEDTIME Lacosamide [Vimpat] Med 05/16/19 21:00 Pending 200 mg PO BID Sodium Chloride 0.9% [Normal Saline] Med 05/16/19 15:09 Active 10 ml IV ASDIRECTED PRN Sodium Chloride 0.9% [Normal Saline] 500 ml Med 05/16/19 15:45 Active IV .BOLUS Sodium Chloride 0.9% [Saline Flush] Med 05/16/19 15:09 Active 10 ml FLUSH ASDIRECTED PRN Sodium Chloride 0.9% [Saline Flush] Med 05/16/19 15:09 Active 2.5 ml FLUSH ASDIRECTED PRN Thiamine [Vitamin B-1] Med 05/16/19 21:00 Active 100 mg PO BEDTIME atorvaSTATin [Lipitor] Med 05/16/19 21:00 Active 40 mg PO BEDTIME Peripheral IV Insertion Adult [OM.PC] Stat Oth 05/16/19 15:09 Ordered Peripheral IV Insertion Adult [OM.PC] Stat Oth 05/16/19 15:09 Ordered Medication Orders Aspirin (Aspirin) 81 mg PO BEDTIME RAJAN Atorvastatin Calcium (Lipitor) 40 mg PO BEDTIME RAJAN Sodium Chloride (Normal Saline) 500 mls @ 999 mls/hr IV .BOLUS RAJAN Last Infusion: 05/16/19 15:47 Dose: 250 mls/hr Admin: 05/16/19 15:42 Dose: 999 mls/hr Non-Formulary Medication (Lacosamide [Vimpat]) 200 mg PO BID RAJAN Sodium Chloride (Saline Flush) 10 ml FLUSH ASDIRECTED PRN PRN Reason: Keep Vein Open Sodium Chloride (Saline Flush) 2.5 ml FLUSH ASDIRECTED PRN PRN Reason: Keep Vein Open Sodium Chloride (Normal Saline) 10 ml IV ASDIRECTED PRN PRN Reason: IV Use Thiamine HCl (Vitamin B-1) 100 mg PO BEDTIME RAJAN Assessment/Plan Comment:: Patient came in with visual disturbances and active visual hallucinations including spirits and spiders CT scan head was negative Metabolic profile is normal UA negative for UTI, TSH normal Will obtain CXR given patient has some cough and rhinorrhea f/u on tox screen, vit b12 level, RPR No h/o alcohol abuse so dont suspect withdrawal will obtain MRI brain No signs of systemic infection, metabolic/infectious cause unlikely May need further neuropsych eval if no medical cause found for hallucinations Will cont neuro checks Allow permissive HTN Resume home Meds including vimpat for seizures (although patient adamantly refusing meds) ASA, statin Lipid profile
[2019-05-16] MEDS: LACOSAMIDE 200 MG PO SCH ×2 (20:34→22:21)
[2019-05-16] MEDS ORDERED: atorvaSTATin 40 MG Tab PO SCH (21:00)
[2019-05-16] MEDS ORDERED: Aspirin 81 MG Tab.Chew PO SCH (21:00)
[2019-05-16] MEDS ORDERED: Thiamine 100 MG Tab PO SCH (21:00)
--- NOTE | 2019-05-16 21:41 | CR ---
INDICATION: Cough. TECHNIQUE: Portable AP upright chest 2110 hour. COMPARISON: 05/08/2017. FINDINGS: Monitoring leads have been placed over the chest wall. Calcified granuloma in the left upper lobe. No pulmonary infiltrates, pleural effusions or pulmonary vascular congestion. The hilar and mediastinal contours are stable. Degenerative changes of the visualized spine. Impression: No acute radiographic chest finding with old granulomatous disease. Dictated by Diony Flores MD @ May 16 2019 9:39PM Signed by Dr. Diony Flores @ May 16 2019 9:40PM
[2019-05-16] MEDS ORDERED: VIMPAT 200 MG PO STA (22:17)
[2019-05-17 06:22] LABS: HEMOGLOBIN A1C 5.6 % (4.5-6.2)
[2019-05-17 06:24] LABS: BLOOD UREA NITROGEN,BUN 14 mg/dL (7.0-18.0); CARBON DIOXIDE,CO2 26.5 mmol/L (21.0-32.0); CHLORIDE,CL 106 mmol/L (98-107); GLUCOSE RANDOM 89 mg/dL (74-106); POTASSIUM,K 4.4 mmol/L (3.5-5.1); SODIUM,NA 141 mmol/L (136-148)
[2019-05-17] MEDS ORDERED: LACOSAMIDE 200 MG PO SCH ×2 (09:00→21:00)
--- NOTE | 2019-05-17 11:14 | PCM.CONS ---
H&P History of Present Illness - General Date of Service: 05/17/19 Admit Problem/Dx: Admission Diagnosis/Problem Admission Diagnosis/Problem Altered mental status - History of Present Illness Initial Comments - Free Text/Narative: 73 year old man with a history of multiple strokes, seizure disorder admitted with visual symptoms and worsening hallucinations. He was brought to ED yesterday because he was seeing lines in his vision, and they were worried about stroke. He also sees spiders and people. He looks at wall and sees designs and artwork. He recognizes that these are not real. He endorses hallucinations of seeing people for 5-6 months. His son was present and was not aware of this. He can be argumentative at times, but otherwise does not appear anxious / agitated related to the hallucination. He does endorse memory issues. He lives with his and son. Prior neuro hx reviewed He has had multiple strokes and multiple TIAs. The first stroke was in 2008 or 2009. The second was a few weeks after the first. 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 He had PFO / ASD, and he had PFO closure in 2009. He was on warfarin in the past, it was stopped after a couple years because he refused to keep taking it. He was diagnosed with a stroke around Jul 2017 by an dairy husbandry worker, which has affected the vision in his left eye. He had skull fracture and head injury in 1968. He started having small episodes after this injury. He had first grand mal seizure was in 1989. He has had 3-4 "grand mal" seizures. The last was 1995. He has "petit mal" seizures as well. He notes that he will drop his glasses. His notes that he won't respond for about a minute or less. He makes smacking movement and picks at his clothes. He will be very tired following the episode. He was started Depakote when seizures started. He had tremor after he started Depakote in 1989. Dilantin caused rapid heart rate. Lamictal was not tolerated. Keppra tried in 2013 was not tolerated.Depakote stopped (due to tremor) and Vimpat started 03/20 and was tolerated well. He was doing well on 100 mg BID, but was having seizures in August, so I had him decrease dose to 200 mg BID. He was very fatigued and weak on this dose. He subsequently decreased dose to 100 mg every other day. He reports no seizures. - Related Data Allergies/Adverse Reactions: Allergies Allergy/AdvReac Type Severity Reaction Status Date / Time morphine Allergy Itching Verified 05/17/19 00:02 pain killers Allergy Itching Uncoded 05/17/19 00:02 Home Medications: Home Meds Aspirin [Halfprin] 81 mg PO DAILY 05/08/17 [History] Lacosamide [Vimpat] 200 mg PO BID 05/16/19 [History] Timolol Maleate [Timoptic 0.5% Ophth Soln] 1 drop EYELF BID 05/16/19 [History] Past Medical History HEENT History: Reports: Impaired Vision Cardiovascular History: Reports: High Cholesterol, Hypertension Respiratory History: Reports: Other (See Below) Other Respiratory History: "I have bad lungs". Genitourinary History: Reports: Renal Calculus Other Genitourinary History: "I have bad kidneys". Musculoskeletal History: Reports: Other (See Below) Other Musculoskeletal History: Generalized weakness. Neurological History: Reports: CVA, Seizure, TIA Psychiatric History: Reports: Dementia Immunologic History: Reports: None Dermatologic History: Reports: Scleroderma - Infectious Disease History Infectious Disease History: Reports: Other (See Below) Other Infectious Disease History: Unable to verify - Past Surgical History HEENT Surgical History: Reports: None Cardiovascular Surgical History: Reports: None GI Surgical History: Reports: Appendectomy Male Surgical History: Reports: None Neurological Surgical History: Reports: None Social & Family History - Family History Family Medical History: Noncontributory - Tobacco Use Smoking Status *Q: Never Smoker Second Hand Smoke Exposure: No - Caffeine Use Caffeine Use: Reports: Coffee Caffeine Use Comment: 2cups/day - Recreational Drug Use Recreational Drug Use: No H&P Review of Systems - Review of Systems: Review Of Systems: ROS reveals no pertinent complaints other than HPI. Exam - Exam Exam: See Below - Vital Signs Vital Signs: Last Vital Signs Temp 36.9 C 05/17/19 07:45 Pulse 61 05/17/19 07:45 Resp 16 05/17/19 07:45 BP 159/76 H 05/17/19 07:45 Pulse Ox 100 05/17/19 07:45 Weight: 54.749 kg - Exam Physical Exam Comments:: Constitutional: No acute distress Psychiatric: Mood/Affect: normal/appropriate Neurological: Mental Status: tangential, often off topic General: Normal activity, good hygiene, appropriate appearance. Level of consciousness: Awake, alert. Concentration/Attention Span: Normal. Orientation: oriented to person and place. Incorrect month, year (2000). He did volunteer [employer] when talking about [facility]. Comprehension/Praxis: Able to perform a three step command. Language: Fluent and articulate without evidence of aphasia or dysarthria. 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 Right eye deviated laterally. EOMI with left eye. Sensation intact and symmetric to light touch. Facial strength is full and symmetric. Palate elevates symmetrically. Normal shrug bilaterally. Tongue protrudes midline Motor:. Power is 5/5 throughout proximal and distal muscles. Sensation: Sensation is intact light touch Coordination: Resting tremor noted on the left. Finger to nose notable for kinetic tremor, worse on the left. Finger taps mildly impaired Gait: wide based gait, lordosis - Patient Data Lab Results Last 24 hrs: Laboratory Results - last 24 hr 05/16/19 05/16/19 05/16/19 Range/Units 15:25 15:25 15:25 WBC 7.21 (4.0-11.0) K/uL RBC 4.36 L (4.50-5.90) M/uL Hgb 13.6 (13.0-17.0) g/dL Hct 40.9 (38.0-50.0) % MCV 93.8 (80.0-98.0) fL MCH 31.2 (27.0-32.0) pg MCHC 33.3 (31.0-37.0) g/dL RDW Std Deviation 47.4 (28.0-62.0) fl RDW Coeff of Sayra 14 (11.0-15.0) % Plt Count 151 (150-400) K/uL MPV 11.50 (7.40-12.00) fL Neut % (Auto) 37.4 L (48.0-80.0) % Lymph % (Auto) 46.0 H (16.0-40.0) % Collier % (Auto) 12.8 (0.0-15.0) % Eos % (Auto) 3.7 (0.0-7.0) % Baso % (Auto) 0.1 (0.0-1.5) % Neut # (Auto) 2.7 (1.4-5.7) K/uL Lymph # (Auto) 3.3 H (0.6-2.4) K/uL Collier # (Auto) 0.9 H (0.0-0.8) K/uL Eos # (Auto) 0.3 (0.0-0.7) K/uL Baso # (Auto) 0.0 (0.0-0.1) K/uL Nucleated RBC % 0.0 /100WBC Nucleated RBCs # 0 K/uL INR 0.96 APTT 28.1 (18.6-31.3) SEC Sodium 140 (136-148) mmol/L Potassium 3.6 (3.5-5.1) mmol/L Chloride 105 (98-107) mmol/L Carbon Dioxide 28.6 (21.0-32.0) mmol/L BUN 18 (7.0-18.0) mg/dL Creatinine 1.1 (0.8-1.3) mg/dL Est Cr Clr Drug Dosing 44.81 mL/min Estimated GFR (MDRD) > 60.0 ml/min Glucose 96 (74-106) mg/dL Hemoglobin A1c (4.5-6.2) % Calcium 9.3 (8.5-10.1) mg/dL Phosphorus (2.6-4.7) mg/dL Magnesium (1.8-2.4) mg/dL Total Bilirubin 0.3 (0.2-1.0) mg/dL AST 22 (15-37) IU/L ALT 22 (14-63) IU/L Alkaline Phosphatase 119 H (46-116) U/L Ammonia (19-54) ug/dL Troponin I < 0.050 (0.000-0.056) ng/mL Total Protein 8.4 H (6.4-8.2) g/dL Albumin 3.2 L (3.4-5.0) g/dL Globulin 5.2 H (2.6-4.0) g/dL Albumin/Globulin Ratio 0.6 L (0.9-1.6) Triglycerides (0-200) mg/dL Cholesterol (50-200) mg/dL LDL Cholesterol, Calc (60-180) mg/dL VLDL Cholesterol (5-55) mg/dL HDL Cholesterol (40-60) mg/dL Cholesterol/HDL Ratio (3.3-6.0) Vitamin B12 (193-986) pg/mL TSH 3rd Generation 2.85 (0.36-3.74) uIU/mL Urine Color Urine Appearance Urine pH (5.0-8.0) Ur Specific Cheney (1.001-1.035) Urine Protein (NEGATIVE) mg/dL Urine Glucose (UA) (NEGATIVE) mg/dL Urine Ketones (NEGATIVE) mg/dL Urine Occult Blood (NEGATIVE) Urine Nitrite (NEGATIVE) Urine Bilirubin (NEGATIVE) Urine Urobilinogen (<2.0) EU/dL Ur Leukocyte Esterase (NEGATIVE) Urine RBC (0-2/HPF) Urine WBC (0-5/HPF) Ur Epithelial Cells (NONE-FEW) Urine Bacteria (NEGATIVE) Urine Mucus (NONE-MOD) Urine Opiates Screen (NEGATIVE) Ur Oxycodone Screen (NEGATIVE) Urine Methadone Screen (NEGATIVE) Ur Barbiturates Screen (NEGATIVE) Ur Phencyclidine Scrn (NEGATIVE) Ur Amphetamine Screen (NEGATIVE) U Methamphetamines Scrn (NEGATIVE) U Benzodiazepines Scrn (NEGATIVE) U Cocaine Metab Screen (NEGATIVE) U Marijuana (THC) Screen (NEGATIVE) 05/16/19 05/16/19 05/16/19 Range/Units 15:25 16:05 16:05 WBC (4.0-11.0) K/uL RBC (4.50-5.90) M/uL Hgb (13.0-17.0) g/dL Hct (38.0-50.0) % MCV (80.0-98.0) fL MCH (27.0-32.0) pg MCHC (31.0-37.0) g/dL RDW Std Deviation (28.0-62.0) fl RDW Coeff of Sayra (11.0-15.0) % Plt Count (150-400) K/uL MPV (7.40-12.00) fL Neut % (Auto) (48.0-80.0) % Lymph % (Auto) (16.0-40.0) % Collier % (Auto) (0.0-15.0) % Eos % (Auto) (0.0-7.0) % Baso % (Auto) (0.0-1.5) % Neut # (Auto) (1.4-5.7) K/uL Lymph # (Auto) (0.6-2.4) K/uL Collier # (Auto) (0.0-0.8) K/uL Eos # (Auto) (0.0-0.7) K/uL Baso # (Auto) (0.0-0.1) K/uL Nucleated RBC % /100WBC Nucleated RBCs # K/uL INR APTT (18.6-31.3) SEC Sodium (136-148) mmol/L Potassium (3.5-5.1) mmol/L Chloride (98-107) mmol/L Carbon Dioxide (21.0-32.0) mmol/L BUN (7.0-18.0) mg/dL Creatinine (0.8-1.3) mg/dL Est Cr Clr Drug Dosing mL/min Estimated GFR (MDRD) ml/min Glucose (74-106) mg/dL Hemoglobin A1c (4.5-6.2) % Calcium (8.5-10.1) mg/dL Phosphorus (2.6-4.7) mg/dL Magnesium (1.8-2.4) mg/dL Total Bilirubin (0.2-1.0) mg/dL AST (15-37) IU/L ALT (14-63) IU/L Alkaline Phosphatase (46-116) U/L Ammonia (19-54) ug/dL Troponin I (0.000-0.056) ng/mL Total Protein (6.4-8.2) g/dL Albumin (3.4-5.0) g/dL Globulin (2.6-4.0) g/dL Albumin/Globulin Ratio (0.9-1.6) Triglycerides (0-200) mg/dL Cholesterol (50-200) mg/dL LDL Cholesterol, Calc (60-180) mg/dL VLDL Cholesterol (5-55) mg/dL HDL Cholesterol (40-60) mg/dL Cholesterol/HDL Ratio (3.3-6.0) Vitamin B12 4865 H (193-986) pg/mL TSH 3rd Generation (0.36-3.74) uIU/mL Urine Color YELLOW Urine Appearance CLEAR Urine pH 6.5 (5.0-8.0) Ur Specific Cheney 1.020 (1.001-1.035) Urine Protein 30 H (NEGATIVE) mg/dL Urine Glucose (UA) NEGATIVE (NEGATIVE) mg/dL Urine Ketones NEGATIVE (NEGATIVE) mg/dL Urine Occult Blood NEGATIVE (NEGATIVE) Urine Nitrite NEGATIVE (NEGATIVE) Urine Bilirubin NEGATIVE (NEGATIVE) Urine Urobilinogen 0.2 (<2.0) EU/dL Ur Leukocyte Esterase NEGATIVE (NEGATIVE) Urine RBC 0-1 (0-2/HPF) Urine WBC 0-2 (0-5/HPF) Ur Epithelial Cells FEW (NONE-FEW) Urine Bacteria RARE (NEGATIVE) Urine Mucus LIGHT (NONE-MOD) Urine Opiates Screen NEGATIVE (NEGATIVE) Ur Oxycodone Screen NEGATIVE (NEGATIVE) Urine Methadone Screen NEGATIVE (NEGATIVE) Ur Barbiturates Screen NEGATIVE (NEGATIVE) Ur Phencyclidine Scrn NEGATIVE (NEGATIVE) Ur Amphetamine Screen NEGATIVE (NEGATIVE) U Methamphetamines Scrn NEGATIVE (NEGATIVE) U Benzodiazepines Scrn NEGATIVE (NEGATIVE) U Cocaine Metab Screen NEGATIVE (NEGATIVE) U Marijuana (THC) Screen NEGATIVE (NEGATIVE) 05/16/19 05/17/19 05/17/19 Range/Units 21:54 05:45 05:45 WBC (4.0-11.0) K/uL RBC (4.50-5.90) M/uL Hgb (13.0-17.0) g/dL Hct (38.0-50.0) % MCV (80.0-98.0) fL MCH (27.0-32.0) pg MCHC (31.0-37.0) g/dL RDW Std Deviation (28.0-62.0) fl RDW Coeff of Sayra (11.0-15.0) % Plt Count (150-400) K/uL MPV (7.40-12.00) fL Neut % (Auto) (48.0-80.0) % Lymph % (Auto) (16.0-40.0) % Collier % (Auto) (0.0-15.0) % Eos % (Auto) (0.0-7.0) % Baso % (Auto) (0.0-1.5) % Neut # (Auto) (1.4-5.7) K/uL Lymph # (Auto) (0.6-2.4) K/uL Collier # (Auto) (0.0-0.8) K/uL Eos # (Auto) (0.0-0.7) K/uL Baso # (Auto) (0.0-0.1) K/uL Nucleated RBC % /100WBC Nucleated RBCs # K/uL INR APTT (18.6-31.3) SEC Sodium 141 (136-148) mmol/L Potassium 4.4 (3.5-5.1) mmol/L Chloride 106 (98-107) mmol/L Carbon Dioxide 26.5 (21.0-32.0) mmol/L BUN 14 (7.0-18.0) mg/dL Creatinine 1.0 (0.8-1.3) mg/dL Est Cr Clr Drug Dosing 49.29 mL/min Estimated GFR (MDRD) > 60.0 ml/min Glucose 89 (74-106) mg/dL Hemoglobin A1c 5.6 (4.5-6.2) % Calcium 9.5 (8.5-10.1) mg/dL Phosphorus 2.9 (2.6-4.7) mg/dL Magnesium 1.8 (1.8-2.4) mg/dL Total Bilirubin (0.2-1.0) mg/dL AST (15-37) IU/L ALT (14-63) IU/L Alkaline Phosphatase (46-116) U/L Ammonia 52 (19-54) ug/dL Troponin I (0.000-0.056) ng/mL Total Protein (6.4-8.2) g/dL Albumin (3.4-5.0) g/dL Globulin (2.6-4.0) g/dL Albumin/Globulin Ratio (0.9-1.6) Triglycerides 66 (0-200) mg/dL Cholesterol 189 (50-200) mg/dL LDL Cholesterol, Calc 116 (60-180) mg/dL VLDL Cholesterol 13 (5-55) mg/dL HDL Cholesterol 60 (40-60) mg/dL Cholesterol/HDL Ratio 3.2 L (3.3-6.0) Vitamin B12 (193-986) pg/mL TSH 3rd Generation (0.36-3.74) uIU/mL Urine Color Urine Appearance Urine pH (5.0-8.0) Ur Specific Cheney (1.001-1.035) Urine Protein (NEGATIVE) mg/dL Urine Glucose (UA) (NEGATIVE) mg/dL Urine Ketones (NEGATIVE) mg/dL Urine Occult Blood (NEGATIVE) Urine Nitrite (NEGATIVE) Urine Bilirubin (NEGATIVE) Urine Urobilinogen (<2.0) EU/dL Ur Leukocyte Esterase (NEGATIVE) Urine RBC (0-2/HPF) Urine WBC (0-5/HPF) Ur Epithelial Cells (NONE-FEW) Urine Bacteria (NEGATIVE) Urine Mucus (NONE-MOD) Urine Opiates Screen (NEGATIVE) Ur Oxycodone Screen (NEGATIVE) Urine Methadone Screen (NEGATIVE) Ur Barbiturates Screen (NEGATIVE) Ur Phencyclidine Scrn (NEGATIVE) Ur Amphetamine Screen (NEGATIVE) U Methamphetamines Scrn (NEGATIVE) U Benzodiazepines Scrn (NEGATIVE) U Cocaine Metab Screen (NEGATIVE) U Marijuana (THC) Screen (NEGATIVE) 05/17/19 Range/Units 05:45 WBC 6.72 (4.0-11.0) K/uL RBC 4.53 (4.50-5.90) M/uL Hgb 14.1 (13.0-17.0) g/dL Hct 42.3 (38.0-50.0) % MCV 93.4 (80.0-98.0) fL MCH 31.1 (27.0-32.0) pg MCHC 33.3 (31.0-37.0) g/dL RDW Std Deviation 46.3 (28.0-62.0) fl RDW Coeff of Sayra 14 (11.0-15.0) % Plt Count 158 (150-400) K/uL MPV 12.00 (7.40-12.00) fL Neut % (Auto) 49.7 (48.0-80.0) % Lymph % (Auto) 37.1 (16.0-40.0) % Collier % (Auto) 11.8 (0.0-15.0) % Eos % (Auto) 1.3 (0.0-7.0) % Baso % (Auto) 0.1 (0.0-1.5) % Neut # (Auto) 3.3 (1.4-5.7) K/uL Lymph # (Auto) 2.5 H (0.6-2.4) K/uL Collier # (Auto) 0.8 (0.0-0.8) K/uL Eos # (Auto) 0.1 (0.0-0.7) K/uL Baso # (Auto) 0.0 (0.0-0.1) K/uL Nucleated RBC % 0.0 /100WBC Nucleated RBCs # 0 K/uL INR APTT (18.6-31.3) SEC Sodium (136-148) mmol/L Potassium (3.5-5.1) mmol/L Chloride (98-107) mmol/L Carbon Dioxide (21.0-32.0) mmol/L BUN (7.0-18.0) mg/dL Creatinine (0.8-1.3) mg/dL Est Cr Clr Drug Dosing mL/min Estimated GFR (MDRD) ml/min Glucose (74-106) mg/dL Hemoglobin A1c (4.5-6.2) % Calcium (8.5-10.1) mg/dL Phosphorus (2.6-4.7) mg/dL Magnesium (1.8-2.4) mg/dL Total Bilirubin (0.2-1.0) mg/dL AST (15-37) IU/L ALT (14-63) IU/L Alkaline Phosphatase (46-116) U/L Ammonia (19-54) ug/dL Troponin I (0.000-0.056) ng/mL Total Protein (6.4-8.2) g/dL Albumin (3.4-5.0) g/dL Globulin (2.6-4.0) g/dL Albumin/Globulin Ratio (0.9-1.6) Triglycerides (0-200) mg/dL Cholesterol (50-200) mg/dL LDL Cholesterol, Calc (60-180) mg/dL VLDL Cholesterol (5-55) mg/dL HDL Cholesterol (40-60) mg/dL Cholesterol/HDL Ratio (3.3-6.0) Vitamin B12 (193-986) pg/mL TSH 3rd Generation (0.36-3.74) uIU/mL Urine Color Urine Appearance Urine pH (5.0-8.0) Ur Specific Cheney (1.001-1.035) Urine Protein (NEGATIVE) mg/dL Urine Glucose (UA) (NEGATIVE) mg/dL Urine Ketones (NEGATIVE) mg/dL Urine Occult Blood (NEGATIVE) Urine Nitrite (NEGATIVE) Urine Bilirubin (NEGATIVE) Urine Urobilinogen (<2.0) EU/dL Ur Leukocyte Esterase (NEGATIVE) Urine RBC (0-2/HPF) Urine WBC (0-5/HPF) Ur Epithelial Cells (NONE-FEW) Urine Bacteria (NEGATIVE) Urine Mucus (NONE-MOD) Urine Opiates Screen (NEGATIVE) Ur Oxycodone Screen (NEGATIVE) Urine Methadone Screen (NEGATIVE) Ur Barbiturates Screen (NEGATIVE) Ur Phencyclidine Scrn (NEGATIVE) Ur Amphetamine Screen (NEGATIVE) U Methamphetamines Scrn (NEGATIVE) U Benzodiazepines Scrn (NEGATIVE) U Cocaine Metab Screen (NEGATIVE) U Marijuana (THC) Screen (NEGATIVE) Result Diagrams: 05/17/19 05:45 05/17/19 05:45 Consult PN Assessment/Plan Procedures: Procedures ASSAY OF TROPONIN QUANT (05/08/17) ASSAY THYROID STIM HORMONE (05/08/17) CHEST X-RAY 1 VIEW FRONTAL (05/08/17) COMPLETE CBC W/AUTO DIFF WBC (05/08/17) CT HEAD/BRAIN W/O DYE (03/22/18) EMERGENCY DEPT VISIT (05/08/17) HYDRATION IV INFUSION INIT (05/08/17) METABOLIC PANEL TOTAL CA (05/08/17) ROUTINE VENIPUNCTURE (05/08/17) (1) Altered mental status SNOMED Code(s): 635954283 Code(s): R41.82 - ALTERED MENTAL STATUS, UNSPECIFIED Current Visit: Yes Qualifiers: Altered mental status type: unspecified Qualified Code(s): R41.82 - Altered mental status, unspecified (2) Epilepsy SNOMED Code(s): 88527119 Code(s): G40.909 - EPILEPSY, UNSP, NOT INTRACTABLE, WITHOUT STATUS EPILEPTICUS Current Visit: Yes Assessment:: Hallucination: 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 Seizures can manifest as hallucinations, but they are fairly continuous, so this is less likely. No evidence of acute infection. Seizure disorder: I discussed Vimpat with him. I recommend at least 100 mg BID , but we negotiated down to 50 mg BID. Problem List Initiated/Reviewed/Updated: Yes
--- NOTE | 2019-05-17 14:13 | PCM.DCSUM1 ---
Discharge Summary - Hospital Course HPI Initial Comments: 73 year old man with a history of multiple strokes, seizure disorder admitted with visual symptoms and worsening hallucinations. Patient was brought to ED yesterday because he was seeing lines in his vision, and there was a concern for stroke given his past CVAs. CT scan of brain was negative for any acute process ad showed old infarcts. Patient was admitted for further work up altered mental status. LAb work was unrevealing, no infectious or metabolic cause was evident. MRI was ordered but there was a concern that patient has a metallic mesh PFO closure, efforts were made to obtain patients records about the PFO closure but we were not able to obtain the said records from [place] despite of multiple attempts. Neurology recommended outpatient MRI in near future,as it could be a new stroke resulting in worsening hallucinations, and Outpatient F/U. Patients hallucinations were not impeding his daily activities and he retained his insight, and neurology didn't recommend any antipsychotics at this time. Patient is medically stable for dc to home and is recommended to f /u with Neurology on outpatient basis. Family was updated to discuss discharge plan and follow ups and they were in agreement with the plan. Diagnosis: Stroke: No - Discharge Data Discharge Date: 05/17/19 Discharge Disposition: Home, Self-Care 01 Condition: Stable - Referral to Home Health Primary Care Physician: PCP Unknown - Discharge Diagnosis/Problem(s) (1) Altered mental status SNOMED Code(s): 694974875 ICD Code: R41.82 - ALTERED MENTAL STATUS, UNSPECIFIED Status: Acute Current Visit: Yes Qualifiers: Altered mental status type: unspecified Qualified Code(s): R41.82 - Altered mental status, unspecified (2) HTN (hypertension) SNOMED Code(s): 66073039 ICD Code: I10 - ESSENTIAL (PRIMARY) HYPERTENSION Status: Acute Current Visit: Yes (3) CVA, old, cognitive deficits SNOMED Code(s): 359202219, 557519624, 620338320, 957732100 ICD Code: I69.319 - UNSP SYMPTOMS AND SIGNS W COGN FNCTNS FOL CEREBRAL INFRC Status: Acute Current Visit: Yes (4) Seizure SNOMED Code(s): 00184710 ICD Code: R56.9 - UNSPECIFIED CONVULSIONS Status: Acute Current Visit: Yes - Patient Summary/Data Consults: Consultations 05/16/19 23:24 Consult to Physician [CONS] Routine - Patient Instructions Diet: Heart Healthy Diet Activity: As Tolerated Driving: Do Not Drive Showering/Bathing: May Shower - Discharge Plan *PRESCRIPTION DRUG MONITORING PROGRAM REVIEWED*: No *COPY OF PRESCRIPTION DRUG MONITORING REPORT IN PATIENT CINDY: No Home Medications: Home Meds Aspirin [Halfprin] 81 mg PO DAILY 05/08/17 [History] Lacosamide [Vimpat] 200 mg PO BID 05/16/19 [History] Timolol Maleate [Timoptic 0.5% Ophth Soln] 1 drop EYELF BID 05/16/19 [History] Oxygen Therapy Mode: Room Air Patient Handouts: Confusion Referrals: [facility] [Outside] Maria Esther Snow DO [Physician] - 06/07/19 11:30 am Sakshi Chapman MD [Physician] - 06/07/19 1:00 pm Cesar Hardin NP [Ordering Only Provider] - 05/27/19 9:00 am - Discharge Summary/Plan Comment DC Time >30 min.: Yes Discharge Summary/Plan Comment: 73 year old man with a history of multiple strokes, seizure disorder admitted with visual symptoms and worsening hallucinations. Patient was brought to ED yesterday because he was seeing lines in his vision, and there was a concern for stroke given his past CVAs. CT scan of brain was negative for any acute process ad showed old infarcts. Patient was admitted for further work up altered mental status. LAb work was unrevealing, no infectious or metabolic cause was evident. MRI was ordered but there was a concern that patient has a metallic mesh PFO closure, efforts were made to obtain patients records about the PFO closure but we were not able to obtain the said records from [facility] despite of multiple attempts. Neurology recommended outpatient MRI in near future,as it could be a new stroke resulting in worsening hallucinations, and Outpatient F/U. Patients hallucinations were not impeding his daily activities and he retained his insight, and neurology didn't recommend any antipsychotics at this time. Patient is medically stable for dc to home and is recommended to f /u with Neurology on outpatient basis. Family was updated to discuss discharge plan and follow ups and they were in agreement with the plan. - Patient Data Vitals - Most Recent: Last Vital Signs Temp 36.9 C 05/17/19 12:00 Pulse 60 05/17/19 12:00 Resp 18 05/17/19 12:00 BP 174/77 H 05/17/19 12:00 Pulse Ox 93 L 05/17/19 12:00 Weight - Most Recent: 120 lb 11.2 oz I&O - Last 24 hours: Intake & Output 05/16/19 05/17/19 05/17/19 22:59 06:59 14:59 Intake Total 500 500 Output Total 790 Balance 500 -290 Lab Results - Last 24 hrs: Laboratory Results - last 24 hr 05/16/19 05/16/19 05/16/19 Range/Units 15:25 15:25 15:25 WBC 7.21 (4.0-11.0) K/uL RBC 4.36 L (4.50-5.90) M/uL Hgb 13.6 (13.0-17.0) g/dL Hct 40.9 (38.0-50.0) % MCV 93.8 (80.0-98.0) fL MCH 31.2 (27.0-32.0) pg MCHC 33.3 (31.0-37.0) g/dL RDW Std Deviation 47.4 (28.0-62.0) fl RDW Coeff of Sayra 14 (11.0-15.0) % Plt Count 151 (150-400) K/uL MPV 11.50 (7.40-12.00) fL Neut % (Auto) 37.4 L (48.0-80.0) % Lymph % (Auto) 46.0 H (16.0-40.0) % [place] % (Auto) 12.8 (0.0-15.0) % Eos % (Auto) 3.7 (0.0-7.0) % Baso % (Auto) 0.1 (0.0-1.5) % Neut # (Auto) 2.7 (1.4-5.7) K/uL Lymph # (Auto) 3.3 H (0.6-2.4) K/uL [place] # (Auto) 0.9 H (0.0-0.8) K/uL Eos # (Auto) 0.3 (0.0-0.7) K/uL Baso # (Auto) 0.0 (0.0-0.1) K/uL Nucleated RBC % 0.0 /100WBC Nucleated RBCs # 0 K/uL INR 0.96 APTT 28.1 (18.6-31.3) SEC Sodium 140 (136-148) mmol/L Potassium 3.6 (3.5-5.1) mmol/L Chloride 105 (98-107) mmol/L Carbon Dioxide 28.6 (21.0-32.0) mmol/L BUN 18 (7.0-18.0) mg/dL Creatinine 1.1 (0.8-1.3) mg/dL Est Cr Clr Drug Dosing 44.81 mL/min Estimated GFR (MDRD) > 60.0 ml/min Glucose 96 (74-106) mg/dL Hemoglobin A1c (4.5-6.2) % Calcium 9.3 (8.5-10.1) mg/dL Phosphorus (2.6-4.7) mg/dL Magnesium (1.8-2.4) mg/dL Total Bilirubin 0.3 (0.2-1.0) mg/dL AST 22 (15-37) IU/L ALT 22 (14-63) IU/L Alkaline Phosphatase 119 H (46-116) U/L Ammonia (19-54) ug/dL Troponin I < 0.050 (0.000-0.056) ng/mL Total Protein 8.4 H (6.4-8.2) g/dL Albumin 3.2 L (3.4-5.0) g/dL Globulin 5.2 H (2.6-4.0) g/dL Albumin/Globulin Ratio 0.6 L (0.9-1.6) Triglycerides (0-200) mg/dL Cholesterol (50-200) mg/dL LDL Cholesterol, Calc (60-180) mg/dL VLDL Cholesterol (5-55) mg/dL HDL Cholesterol (40-60) mg/dL Cholesterol/HDL Ratio (3.3-6.0) Vitamin B12 (193-986) pg/mL TSH 3rd Generation 2.85 (0.36-3.74) uIU/mL Urine Color Urine Appearance Urine pH (5.0-8.0) Ur Specific Beatty (1.001-1.035) Urine Protein (NEGATIVE) mg/dL Urine Glucose (UA) (NEGATIVE) mg/dL Urine Ketones (NEGATIVE) mg/dL Urine Occult Blood (NEGATIVE) Urine Nitrite (NEGATIVE) Urine Bilirubin (NEGATIVE) Urine Urobilinogen (<2.0) EU/dL Ur Leukocyte Esterase (NEGATIVE) Urine RBC (0-2/HPF) Urine WBC (0-5/HPF) Ur Epithelial Cells (NONE-FEW) Urine Bacteria (NEGATIVE) Urine Mucus (NONE-MOD) Urine Opiates Screen (NEGATIVE) Ur Oxycodone Screen (NEGATIVE) Urine Methadone Screen (NEGATIVE) Ur Barbiturates Screen (NEGATIVE) Ur Phencyclidine Scrn (NEGATIVE) Ur Amphetamine Screen (NEGATIVE) U Methamphetamines Scrn (NEGATIVE) U Benzodiazepines Scrn (NEGATIVE) U Cocaine Metab Screen (NEGATIVE) U Marijuana (THC) Screen (NEGATIVE) 05/16/19 05/16/19 05/16/19 Range/Units 15:25 16:05 16:05 WBC (4.0-11.0) K/uL RBC (4.50-5.90) M/uL Hgb (13.0-17.0) g/dL Hct (38.0-50.0) % MCV (80.0-98.0) fL MCH (27.0-32.0) pg MCHC (31.0-37.0) g/dL RDW Std Deviation (28.0-62.0) fl RDW Coeff of Sayra (11.0-15.0) % Plt Count (150-400) K/uL MPV (7.40-12.00) fL Neut % (Auto) (48.0-80.0) % Lymph % (Auto) (16.0-40.0) % [place] % (Auto) (0.0-15.0) % Eos % (Auto) (0.0-7.0) % Baso % (Auto) (0.0-1.5) % Neut # (Auto) (1.4-5.7) K/uL Lymph # (Auto) (0.6-2.4) K/uL [place] # (Auto) (0.0-0.8) K/uL Eos # (Auto) (0.0-0.7) K/uL Baso # (Auto) (0.0-0.1) K/uL Nucleated RBC % /100WBC Nucleated RBCs # K/uL INR APTT (18.6-31.3) SEC Sodium (136-148) mmol/L Potassium (3.5-5.1) mmol/L Chloride (98-107) mmol/L Carbon Dioxide (21.0-32.0) mmol/L BUN (7.0-18.0) mg/dL Creatinine (0.8-1.3) mg/dL Est Cr Clr Drug Dosing mL/min Estimated GFR (MDRD) ml/min Glucose (74-106) mg/dL Hemoglobin A1c (4.5-6.2) % Calcium (8.5-10.1) mg/dL Phosphorus (2.6-4.7) mg/dL Magnesium (1.8-2.4) mg/dL Total Bilirubin (0.2-1.0) mg/dL AST (15-37) IU/L ALT (14-63) IU/L Alkaline Phosphatase (46-116) U/L Ammonia (19-54) ug/dL Troponin I (0.000-0.056) ng/mL Total Protein (6.4-8.2) g/dL Albumin (3.4-5.0) g/dL Globulin (2.6-4.0) g/dL Albumin/Globulin Ratio (0.9-1.6) Triglycerides (0-200) mg/dL Cholesterol (50-200) mg/dL LDL Cholesterol, Calc (60-180) mg/dL VLDL Cholesterol (5-55) mg/dL HDL Cholesterol (40-60) mg/dL Cholesterol/HDL Ratio (3.3-6.0) Vitamin B12 4865 H (193-986) pg/mL TSH 3rd Generation (0.36-3.74) uIU/mL Urine Color YELLOW Urine Appearance CLEAR Urine pH 6.5 (5.0-8.0) Ur Specific Beatty 1.020 (1.001-1.035) Urine Protein 30 H (NEGATIVE) mg/dL Urine Glucose (UA) NEGATIVE (NEGATIVE) mg/dL Urine Ketones NEGATIVE (NEGATIVE) mg/dL Urine Occult Blood NEGATIVE (NEGATIVE) Urine Nitrite NEGATIVE (NEGATIVE) Urine Bilirubin NEGATIVE (NEGATIVE) Urine Urobilinogen 0.2 (<2.0) EU/dL Ur Leukocyte Esterase NEGATIVE (NEGATIVE) Urine RBC 0-1 (0-2/HPF) Urine WBC 0-2 (0-5/HPF) Ur Epithelial Cells FEW (NONE-FEW) Urine Bacteria RARE (NEGATIVE) Urine Mucus LIGHT (NONE-MOD) Urine Opiates Screen NEGATIVE (NEGATIVE) Ur Oxycodone Screen NEGATIVE (NEGATIVE) Urine Methadone Screen NEGATIVE (NEGATIVE) Ur Barbiturates Screen NEGATIVE (NEGATIVE) Ur Phencyclidine Scrn NEGATIVE (NEGATIVE) Ur Amphetamine Screen NEGATIVE (NEGATIVE) U Methamphetamines Scrn NEGATIVE (NEGATIVE) U Benzodiazepines Scrn NEGATIVE (NEGATIVE) U Cocaine Metab Screen NEGATIVE (NEGATIVE) U Marijuana (THC) Screen NEGATIVE (NEGATIVE) 05/16/19 05/17/19 05/17/19 Range/Units 21:54 05:45 05:45 WBC (4.0-11.0) K/uL RBC (4.50-5.90) M/uL Hgb (13.0-17.0) g/dL Hct (38.0-50.0) % MCV (80.0-98.0) fL MCH (27.0-32.0) pg MCHC (31.0-37.0) g/dL RDW Std Deviation (28.0-62.0) fl RDW Coeff of Sayra (11.0-15.0) % Plt Count (150-400) K/uL MPV (7.40-12.00) fL Neut % (Auto) (48.0-80.0) % Lymph % (Auto) (16.0-40.0) % [place] % (Auto) (0.0-15.0) % Eos % (Auto) (0.0-7.0) % Baso % (Auto) (0.0-1.5) % Neut # (Auto) (1.4-5.7) K/uL Lymph # (Auto) (0.6-2.4) K/uL [place] # (Auto) (0.0-0.8) K/uL Eos # (Auto) (0.0-0.7) K/uL Baso # (Auto) (0.0-0.1) K/uL Nucleated RBC % /100WBC Nucleated RBCs # K/uL INR APTT (18.6-31.3) SEC Sodium 141 (136-148) mmol/L Potassium 4.4 (3.5-5.1) mmol/L Chloride 106 (98-107) mmol/L Carbon Dioxide 26.5 (21.0-32.0) mmol/L BUN 14 (7.0-18.0) mg/dL Creatinine 1.0 (0.8-1.3) mg/dL Est Cr Clr Drug Dosing 49.29 mL/min Estimated GFR (MDRD) > 60.0 ml/min Glucose 89 (74-106) mg/dL Hemoglobin A1c 5.6 (4.5-6.2) % Calcium 9.5 (8.5-10.1) mg/dL Phosphorus 2.9 (2.6-4.7) mg/dL Magnesium 1.8 (1.8-2.4) mg/dL Total Bilirubin (0.2-1.0) mg/dL AST (15-37) IU/L ALT (14-63) IU/L Alkaline Phosphatase (46-116) U/L Ammonia 52 (19-54) ug/dL Troponin I (0.000-0.056) ng/mL Total Protein (6.4-8.2) g/dL Albumin (3.4-5.0) g/dL Globulin (2.6-4.0) g/dL Albumin/Globulin Ratio (0.9-1.6) Triglycerides 66 (0-200) mg/dL Cholesterol 189 (50-200) mg/dL LDL Cholesterol, Calc 116 (60-180) mg/dL VLDL Cholesterol 13 (5-55) mg/dL HDL Cholesterol 60 (40-60) mg/dL Cholesterol/HDL Ratio 3.2 L (3.3-6.0) Vitamin B12 (193-986) pg/mL TSH 3rd Generation (0.36-3.74) uIU/mL Urine Color Urine Appearance Urine pH (5.0-8.0) Ur Specific Beatty (1.001-1.035) Urine Protein (NEGATIVE) mg/dL Urine Glucose (UA) (NEGATIVE) mg/dL Urine Ketones (NEGATIVE) mg/dL Urine Occult Blood (NEGATIVE) Urine Nitrite (NEGATIVE) Urine Bilirubin (NEGATIVE) Urine Urobilinogen (<2.0) EU/dL Ur Leukocyte Esterase (NEGATIVE) Urine RBC (0-2/HPF) Urine WBC (0-5/HPF) Ur Epithelial Cells (NONE-FEW) Urine Bacteria (NEGATIVE) Urine Mucus (NONE-MOD) Urine Opiates Screen (NEGATIVE) Ur Oxycodone Screen (NEGATIVE) Urine Methadone Screen (NEGATIVE) Ur Barbiturates Screen (NEGATIVE) Ur Phencyclidine Scrn (NEGATIVE) Ur Amphetamine Screen (NEGATIVE) U Methamphetamines Scrn (NEGATIVE) U Benzodiazepines Scrn (NEGATIVE) U Cocaine Metab Screen (NEGATIVE) U Marijuana (THC) Screen (NEGATIVE) 05/17/19 Range/Units 05:45 WBC 6.72 (4.0-11.0) K/uL RBC 4.53 (4.50-5.90) M/uL Hgb 14.1 (13.0-17.0) g/dL Hct 42.3 (38.0-50.0) % MCV 93.4 (80.0-98.0) fL MCH 31.1 (27.0-32.0) pg MCHC 33.3 (31.0-37.0) g/dL RDW Std Deviation 46.3 (28.0-62.0) fl RDW Coeff of Sayra 14 (11.0-15.0) % Plt Count 158 (150-400) K/uL MPV 12.00 (7.40-12.00) fL Neut % (Auto) 49.7 (48.0-80.0) % Lymph % (Auto) 37.1 (16.0-40.0) % [place] % (Auto) 11.8 (0.0-15.0) % Eos % (Auto) 1.3 (0.0-7.0) % Baso % (Auto) 0.1 (0.0-1.5) % Neut # (Auto) 3.3 (1.4-5.7) K/uL Lymph # (Auto) 2.5 H (0.6-2.4) K/uL [place] # (Auto) 0.8 (0.0-0.8) K/uL Eos # (Auto) 0.1 (0.0-0.7) K/uL Baso # (Auto) 0.0 (0.0-0.1) K/uL Nucleated RBC % 0.0 /100WBC Nucleated RBCs # 0 K/uL INR APTT (18.6-31.3) SEC Sodium (136-148) mmol/L Potassium (3.5-5.1) mmol/L Chloride (98-107) mmol/L Carbon Dioxide (21.0-32.0) mmol/L BUN (7.0-18.0) mg/dL Creatinine (0.8-1.3) mg/dL Est Cr Clr Drug Dosing mL/min Estimated GFR (MDRD) ml/min Glucose (74-106) mg/dL Hemoglobin A1c (4.5-6.2) % Calcium (8.5-10.1) mg/dL Phosphorus (2.6-4.7) mg/dL Magnesium (1.8-2.4) mg/dL Total Bilirubin (0.2-1.0) mg/dL AST (15-37) IU/L ALT (14-63) IU/L Alkaline Phosphatase (46-116) U/L Ammonia (19-54) ug/dL Troponin I (0.000-0.056) ng/mL Total Protein (6.4-8.2) g/dL Albumin (3.4-5.0) g/dL Globulin (2.6-4.0) g/dL Albumin/Globulin Ratio (0.9-1.6) Triglycerides (0-200) mg/dL Cholesterol (50-200) mg/dL LDL Cholesterol, Calc (60-180) mg/dL VLDL Cholesterol (5-55) mg/dL HDL Cholesterol (40-60) mg/dL Cholesterol/HDL Ratio (3.3-6.0) Vitamin B12 (193-986) pg/mL TSH 3rd Generation (0.36-3.74) uIU/mL Urine Color Urine Appearance Urine pH (5.0-8.0) Ur Specific Beatty (1.001-1.035) Urine Protein (NEGATIVE) mg/dL Urine Glucose (UA) (NEGATIVE) mg/dL Urine Ketones (NEGATIVE) mg/dL Urine Occult Blood (NEGATIVE) Urine Nitrite (NEGATIVE) Urine Bilirubin (NEGATIVE) Urine Urobilinogen (<2.0) EU/dL Ur Leukocyte Esterase (NEGATIVE) Urine RBC (0-2/HPF) Urine WBC (0-5/HPF) Ur Epithelial Cells (NONE-FEW) Urine Bacteria (NEGATIVE) Urine Mucus (NONE-MOD) Urine Opiates Screen (NEGATIVE) Ur Oxycodone Screen (NEGATIVE) Urine Methadone Screen (NEGATIVE) Ur Barbiturates Screen (NEGATIVE) Ur Phencyclidine Scrn (NEGATIVE) Ur Amphetamine Screen (NEGATIVE) U Methamphetamines Scrn (NEGATIVE) U Benzodiazepines Scrn (NEGATIVE) U Cocaine Metab Screen (NEGATIVE) U Marijuana (THC) Screen (NEGATIVE) Med Orders - Current: Current Medications Aspirin (Aspirin) 81 mg PO BEDTIME PENDING SALE TO [facility] Last Admin: 05/16/19 20:29 Dose: 81 mg Atorvastatin Calcium (Lipitor) 40 mg PO BEDTIME PENDING SALE TO [facility] Last Admin: 05/16/19 20:29 Dose: 40 mg Lacosamide [Vimpat] (200 Mg *Pt Own Med*) 1 each PO BID PENDING SALE TO [facility] Sodium Chloride (Saline Flush) 10 ml FLUSH ASDIRECTED PRN PRN Reason: Keep Vein Open Sodium Chloride (Saline Flush) 2.5 ml FLUSH ASDIRECTED PRN PRN Reason: Keep Vein Open Sodium Chloride (Normal Saline) 10 ml IV ASDIRECTED PRN PRN Reason: IV Use Thiamine HCl (Vitamin B-1) 100 mg PO BEDTIME PENDING SALE TO [facility] Last Admin: 05/16/19 20:29 Dose: 100 mg Discontinued Medications Sodium Chloride (Normal Saline) 500 mls @ 999 mls/hr IV .BOLUS PENDING SALE TO [facility] Last Infusion: 05/16/19 15:47 Dose: 250 mls/hr Magnesium Oxide (Magnesium Oxide) 400 mg PO ONETIME ONE Stop: 05/16/19 19:02 Last Admin: 05/16/19 20:28 Dose: 400 mg (Lacosamide [Vimpat] (200 Mg)*Pt Own Med*) 200 mg PO BID PENDING SALE TO [facility] Last Admin: 05/16/19 22:21 Dose: Not Given Vimpat 200mg Tab (Own Med) 0 each PO STAT STA Stop: 05/16/19 22:18 Last Admin: 05/17/19 00:49 Dose: 100 each Lacosamide [Vimpat] (200 Mg *Pt Own Med*) 0 mg PO BID PENDING SALE TO [facility] Last Admin: 05/17/19 10:00 Dose: Not Given Potassium Chloride (Klor-Con M20) 20 meq PO ONETIME ONE Stop: 05/16/19 19:01 Last Admin: 05/16/19 20:28 Dose: 20 meq
[2019-05-17 16:11] VITALS: BP 135/75; PULSE 56
== END 2019-05-17 16:30 | disposition home or self-care (01) ==
LOC: MW.ED 15:07 → MW.MS 16:01
PROVIDERS: ADMIT Student in an Organized Health Care Education/Training Program; ATTEND Student in an Organized Health Care Education/Training Program
DX: R41.82 Altered mental status, unspecified (principal); I10 Essential (primary) hypertension; G40.909 Epilepsy, unspecified, not intractable, without status epilepticus; E78.00 Pure hypercholesterolemia, unspecified; Z79.82 Long term (current) use of aspirin; Z79.899 Other long term (current) drug therapy; Z86.73 Personal history of transient ischemic attack (TIA), and cerebral infarction without residual deficits; Z88.5 Allergy status to narcotic agent; Z88.8 Allergy status to other drugs, medicaments and biological substances
CPT/HCPCS: 36415; 70450; 71045; 80048; 80053; 80061; 80305; 81001; 82140; 82607; 83036; 83735; 84100; 84443; 84484; 85025; 85610; 85730; 86593; 93005; 96360; 96361; 99285; A9270; G0378; J7040

== ENCOUNTER 2023-03-31 08:16 | Day surgery (SDC) | payer MEDICARE, OTHER ==
[~2023-03-31 08:16] MED LIST: Lactated Ringers 1,000 ML IV SCH
[2023-03-31] MEDS ORDERED: propofoL 50 ML ONE (09:12)
[2023-03-31] MEDS ORDERED: Lactated Ringers 1,000 ML IV SCH (10:30)
[2023-03-31 12:18] VITALS: BP 163/79; PULSE 51
== END 2023-03-31 11:26 | disposition home or self-care (01) ==
LOC: MW.SDS 08:16
PROVIDERS: ATTEND Surgery
DX: D64.9 Anemia, unspecified (principal); K29.50 Unspecified chronic gastritis without bleeding; K20.90 Esophagitis, unspecified without bleeding; K57.30 Diverticulosis of large intestine without perforation or abscess without bleeding; M19.90 Unspecified osteoarthritis, unspecified site; I10 Essential (primary) hypertension; E78.00 Pure hypercholesterolemia, unspecified; R56.9 Unspecified convulsions; F03.90 Unspecified dementia, unspecified severity, without behavioral disturbance, psychotic disturbance, mood disturbance, and anxiety; Z88.5 Allergy status to narcotic agent; Z79.899 Other long term (current) drug therapy; Z86.73 Personal history of transient ischemic attack (TIA), and cerebral infarction without residual deficits; Z87.442 Personal history of urinary calculi; Z98.890 Other specified postprocedural states
CPT/HCPCS: 43239; 45378; J2704; J7120; 00813; 99100

== ENCOUNTER 2023-06-13 11:59 | Emergency (ER) | payer MEDICARE, OTHER ==
[2023-06-13 12:19] LABS: BASOPHILS ABSOLUTE AUTO 0.02 K/uL (0.00-0.20); BASOPHILS PERCENT AUTO 0.3 % (0.0-1.0); EOSINOPHILS ABSOLUTE AUTO 0.22 K/uL (0.00-0.45); EOSINOPHILS PERCENT AUTO 2.8 % (0.0-6.0); HEMOGLOBIN 11.9 g/dL (14.0-18.0); IMMATURE GRAN ABSOLUTE AUTO 0.01 K/uL (0.00-0.05); IMMATURE GRAN PERCENT AUTO 0.1 % (0.0-0.4); LYMPHOCYTES ABSOLUTE AUTO 2.54 K/uL (1.00-4.80); LYMPHOCYTES PERCENT AUTO 32.7 % (24.0-44.0); MEAN CORPUSCULAR HEMOGLOBIN 32.1 pg (28.0-32.0); MEAN CORPUSCULAR VOLUME 94.3 fL (83.0-99.0); MEAN PLATELET VOLUME 11.4 fL (9.4-12.4); MONOCYTES ABSOLUTE AUTO 0.99 K/uL (0.00-0.80); MONOCYTES PERCENT AUTO 12.8 % (0.0-8.0); NEUTROPHILS ABSOLUTE AUTO 3.98 K/uL (1.80-7.70); NEUTROPHILS PERCENT AUTO 51.3 % (41.0-71.0); PLATELET COUNT,PLT 171 K/uL (150-400); RED BLOOD CELL COUNT 3.71 M/uL (4.52-5.90); WHITE BLOOD CELL COUNT,WBC 7.76 K/uL (3.9-11.3)
[2023-06-13] MEDS ORDERED: Lisinopril 10 MG Tab PO ONE (12:23)
[2023-06-13 12:26] LABS: APPEARANCE,URINE CLEAR; BILIRUBIN,URINE NEGATIVE (NEGATIVE); COLOR,URINE YELLOW; GLUCOSE,URINE NEGATIVE (NEGATIVE); KETONES,URINE NEGATIVE (NEGATIVE); LEUKOCYTE ESTERASE,URINE NEGATIVE (NEGATIVE); NITRITE,URINE NEGATIVE (NEGATIVE); OCCULT BLOOD,URINE NEGATIVE (NEGATIVE); PROTEIN,URINE TRACE mg/dL (NEGATIVE); UROBILINOGEN,URINE 0.2 EU/dL (<2.0)
[2023-06-13 12:52] LABS: A/G RATIO 0.6 (0.9-1.6); ALBUMIN 3.2 g/dL (3.4-5.0); BILIRUBIN TOTAL 0.3 mg/dL (0.2-1.0); CALCIUM 9.7 mg/dL (8.5-10.1); CARBON DIOXIDE,CO2 28.7 mmol/L (21.0-32.0); CREATININE 1.1 mg/dL (0.8-1.3); EST CRCL DRUG DOSING (CG) 39.28 mL/min; POTASSIUM,K 3.8 mmol/L (3.5-5.1); PROTEIN TOTAL,TP 8.5 g/dL (6.4-8.2)
[2023-06-13 12:58] LABS: RBC,URINE 0-2 (0-2/HPF); WBC,URINE 0-3 (0-5/HPF)
[2023-06-13 14:39] VITALS: BP 160/63; PULSE 64
== END 2023-06-13 14:36 | disposition home or self-care (01) ==
LOC: MW.ED 11:59
DX: Z76.0 Encounter for issue of repeat prescription (principal); R56.9 Unspecified convulsions; I10 Essential (primary) hypertension; Z88.5 Allergy status to narcotic agent; Z88.8 Allergy status to other drugs, medicaments and biological substances; Z79.899 Other long term (current) drug therapy
CPT/HCPCS: 36415; 70450; 71045; 80053; 81001; 84484; 85025; 93005; 96374; 99285; A9270; J1953; J7060; 93010; 99283

== ENCOUNTER 2024-05-16 23:52 | Inpatient (IN) | payer OTHER ==
[2024-05-17 00:18] LABS: BASOPHILS ABSOLUTE AUTO 0.03 K/uL (0.00-0.20); BASOPHILS PERCENT AUTO 0.2 % (0.0-1.0); EOSINOPHILS ABSOLUTE AUTO 0.01 K/uL (0.00-0.45); EOSINOPHILS PERCENT AUTO 0.1 % (0.0-6.0); HEMOGLOBIN 12.9 g/dL (14.0-18.0); IMMATURE GRAN ABSOLUTE AUTO 0.08 K/uL (0.00-0.05); IMMATURE GRAN PERCENT AUTO 0.4 % (0.0-0.4); LYMPHOCYTES ABSOLUTE AUTO 0.99 K/uL (1.00-4.80); LYMPHOCYTES PERCENT AUTO 5.2 % (24.0-44.0); MEAN CORPUSCULAR HEMOGLOBIN 32.3 pg (28.0-32.0); MEAN CORPUSCULAR HGB CONC 33.9 g/dL (32.0-36.0); MEAN CORPUSCULAR VOLUME 95.2 fL (83.0-99.0); MONOCYTES ABSOLUTE AUTO 1.25 K/uL (0.00-0.80); MONOCYTES PERCENT AUTO 6.6 % (0.0-8.0); NEUTROPHILS ABSOLUTE AUTO 16.64 K/uL (1.80-7.70); NEUTROPHILS PERCENT AUTO 87.5 % (41.0-71.0); PLATELET COUNT,PLT 178 K/uL (150-400); RED BLOOD CELL COUNT 3.99 M/uL (4.52-5.90)
[2024-05-17 00:35] LABS: A/G RATIO 0.6 (0.9-1.6); ALBUMIN 3.2 g/dL (3.4-5.0); BILIRUBIN TOTAL 0.5 mg/dL (0.2-1.0); CALCIUM 9.6 mg/dL (8.5-10.1); CREATININE 1.2 mg/dL (0.8-1.3); EST CRCL DRUG DOSING (CG) 33.33 mL/min; POTASSIUM,K 4.1 mmol/L (3.5-5.1); PROTEIN TOTAL,TP 8.2 g/dL (6.4-8.2)
[2024-05-17 00:40] LABS: CARBON DIOXIDE,CO2 26.5 mmol/L (21.0-32.0)
[2024-05-17 01:54] LABS: APPEARANCE,URINE CLEAR; BILIRUBIN,URINE NEGATIVE (NEGATIVE); COLOR,URINE YELLOW; GLUCOSE,URINE NEGATIVE (NEGATIVE); KETONES,URINE TRACE mg/dL (NEGATIVE); LEUKOCYTE ESTERASE,URINE NEGATIVE (NEGATIVE); NITRITE,URINE NEGATIVE (NEGATIVE); OCCULT BLOOD,URINE NEGATIVE (NEGATIVE); PROTEIN,URINE 100 mg/dL (NEGATIVE); UROBILINOGEN,URINE 0.2 EU/dL (<2.0)
[2024-05-17] MEDS: Azithromycin 500 MG in Sodium Chloride 0.9% 250 ML IV ONE (02:00)
[2024-05-17] MEDS: Sodium Chloride 0.9% 10 ML Syringe FLUSH PRN (02:00)
[2024-05-17] MEDS: cefTRIAXone 1 GM in Sodium Chloride 0.9% 50 ML IV ONE (02:00)
[2024-05-17] MEDS: Sodium Chloride 0.9% 2.5 ML Syringe FLUSH PRN (02:01)
[2024-05-17 02:03] LABS: BACTERIA,URINE RARE (NEGATIVE); EPITHELIAL CELLS,URINE OCCASIONAL (NONE-FEW); RBC,URINE 0-1 (0-2/HPF); WBC,URINE 0-1 (0-5/HPF)
[2024-05-17 06:37] LABS: BASOPHILS ABSOLUTE AUTO 0.02 K/uL (0.00-0.20); BASOPHILS PERCENT AUTO 0.1 % (0.0-1.0); EOSINOPHILS ABSOLUTE AUTO 0.01 K/uL (0.00-0.45); EOSINOPHILS PERCENT AUTO 0.1 % (0.0-6.0); HEMATOCRIT 34.1 % (42.0-52.0); HEMOGLOBIN 11.6 g/dL (14.0-18.0); IMMATURE GRAN ABSOLUTE AUTO 0.06 K/uL (0.00-0.05); IMMATURE GRAN PERCENT AUTO 0.3 % (0.0-0.4); LYMPHOCYTES ABSOLUTE AUTO 1.74 K/uL (1.00-4.80); LYMPHOCYTES PERCENT AUTO 9.2 % (24.0-44.0); MEAN CORPUSCULAR HEMOGLOBIN 32.1 pg (28.0-32.0); MEAN CORPUSCULAR VOLUME 94.5 fL (83.0-99.0); MEAN PLATELET VOLUME 11.2 fL (9.4-12.4); MONOCYTES ABSOLUTE AUTO 1.16 K/uL (0.00-0.80); MONOCYTES PERCENT AUTO 6.1 % (0.0-8.0); NEUTROPHILS ABSOLUTE AUTO 15.93 K/uL (1.80-7.70); NEUTROPHILS PERCENT AUTO 84.2 % (41.0-71.0); PLATELET COUNT,PLT 143 K/uL (150-400); RED BLOOD CELL COUNT 3.61 M/uL (4.52-5.90); WHITE BLOOD CELL COUNT,WBC 18.92 K/uL (3.9-11.3)
[2024-05-17 06:52] LABS: CALCIUM 9.7 mg/dL (8.5-10.1); CARBON DIOXIDE,CO2 25.9 mmol/L (21.0-32.0); CREATININE 1.2 mg/dL (0.8-1.3); EST CRCL DRUG DOSING (CG) 31.94 mL/min; MAGNESIUM 1.6 mg/dL (1.8-2.4); POTASSIUM,K 4.2 mmol/L (3.5-5.1)
[2024-05-17 06:56] LABS: CORONAVIRUS COVID-19 NAA NEGATIVE (NEGATIVE); INFLUENZA A NAA NEGATIVE (NEGATIVE); INFLUENZA B NAA NEGATIVE (NEGATIVE); RESPIRATORY SYNCYTIAL VIR NAA NEGATIVE (NEGATIVE)
[2024-05-17] MEDS ORDERED: LACOSAMIDE 50 MG PO SCH (09:00)
[2024-05-17] MEDS: Azithromycin 500 MG in Sodium Chloride 0.9% 250 ML IV SCH (09:39)
[2024-05-17] MEDS: cefTRIAXone 1 GM in Sodium Chloride 0.9% 50 ML IV SCH (11:22)
[2024-05-17] MEDS: Aspirin 81 MG Tab.EC PO SCH (13:08)
[2024-05-17] MEDS: Timolol Maleate 0.5% Ophth Soln 5 ML Bottle EYELF SCH ×2 (13:55→14:55)
[2024-05-17] MEDS: [UNRECOGNIZED DRUG - OTHER] EYEBOTH SCH (13:56)
[2024-05-17] MEDS: Carboxymethylcellulose Sodium 0.5% Ophth Soln 0.4 ML UD Box of 30 EYEBOTH SCH (14:55)
[2024-05-17] MEDS: Lisinopril 10 MG Tab PO SCH (14:56)
[2024-05-17 16:08] VITALS: BP 157/60; PULSE 76
[2024-05-17] MEDS ORDERED: Latanoprost 0.005% Ophth Soln 2.5 ML Bottle EYEBOTH SCH (21:00)
== END 2024-05-17 18:50 | DRG 179 ==
LOC: MW.ED 23:52 → MW.MS 05-17 02:54 → OBSVTOIN 05-17 02:54
PROVIDERS: ADMIT Internal Medicine; ATTEND Internal Medicine
DX: J69.0 Pneumonitis due to inhalation of food and vomit (principal); I10 Essential (primary) hypertension; R41.82 Altered mental status, unspecified; G93.89 Other specified disorders of brain; H54.7 Unspecified visual loss; E78.00 Pure hypercholesterolemia, unspecified; Z66 Do not resuscitate; M19.90 Unspecified osteoarthritis, unspecified site; D72.829 Elevated white blood cell count, unspecified; F03.90 Unspecified dementia, unspecified severity, without behavioral disturbance, psychotic disturbance, mood disturbance, and anxiety; E78.5 Hyperlipidemia, unspecified; H40.9 Unspecified glaucoma; G40.909 Epilepsy, unspecified, not intractable, without status epilepticus; Z86.73 Personal history of transient ischemic attack (TIA), and cerebral infarction without residual deficits; Z88.5 Allergy status to narcotic agent; Z88.6 Allergy status to analgesic agent; Z79.82 Long term (current) use of aspirin; Z90.89 Acquired absence of other organs; Z95.1 Presence of aortocoronary bypass graft; Z87.442 Personal history of urinary calculi; Z98.49 Cataract extraction status, unspecified eye; Z98.890 Other specified postprocedural states; Z79.899 Other long term (current) drug therapy
CPT/HCPCS: 0241U; 36415; 70450; 71045; 80048; 80053; 81001; 83735; 84484; 85025; 94667; 96365; 96368; 99285; A9270-GY; G0378; J0456; J0696; J1953; J3490; J7050; J7060